=== PATIENT | female | born 1965 | race Caucasian/White ===

== ENCOUNTER 2016-07-02 22:26 | Emergency (ER) | payer MEDICARE, OTHER ==
[~2016-07-02] VITALS: Ht 170.2 cm; Wt 68.0 kg
[~2016-07-02 22:26] MED LIST: CLON1TAB4 PO; DISU250T7 PO; DULO20CA PO; FLUV50TA10 PO; GABA800T PO; LEVO25TA9 PO; LINA145C PO; LORA1TAB82 PO; PROC10TA PO; TRAZ-147 PO
[2016-07-02 22:40] VITALS: BP 124/83
== END 2016-07-02 23:24 | disposition home or self-care (01) ==
LOC: ER 22:27
DX: F10.129 Alcohol abuse with intoxication, unspecified (principal); E03.9 Hypothyroidism, unspecified; F32.9 Major depressive disorder, single episode, unspecified; F42.9 Obsessive-compulsive disorder, unspecified; F17.200 Nicotine dependence, unspecified, uncomplicated; R79.89 Other specified abnormal findings of blood chemistry
CPT/HCPCS: 82962; 99283; A4606; Z7610

== ENCOUNTER 2016-08-12 23:12 | Emergency (ER) | payer MEDICARE, OTHER ==
[~2016-08-12] VITALS: Ht 175.3 cm; Wt 68.0 kg
[2016-08-12 23:35] VITALS: BP 140/87
[2016-08-13] MEDS ORDERED: LORAZEPAM INJ 2 MG/ML VIAL ONE (00:24)
[2016-08-13] MEDS ORDERED: LORAZEPAM INJ 2 MG/ML VIAL IM ONE (00:30)
== END 2016-08-13 01:04 | disposition left against medical advice (07) ==
LOC: ER 23:16
DX: F10.10 Alcohol abuse, uncomplicated (principal); G40.909 Epilepsy, unspecified, not intractable, without status epilepticus; F32.9 Major depressive disorder, single episode, unspecified; E03.9 Hypothyroidism, unspecified; F42.8 Other obsessive-compulsive disorder; F17.200 Nicotine dependence, unspecified, uncomplicated
CPT/HCPCS: 82962; 96372; 99283; A4606; J2060; Z7610

== ENCOUNTER 2016-08-27 22:54 | Emergency (ER) | payer MEDICARE, OTHER ==
[~2016-08-27] VITALS: Ht 175.3 cm; Wt 65.3 kg
[2016-08-27 23:15] VITALS: BP 153/93
--- NOTE | 2016-08-27 23:15 | NUR ---
TRIAGED AND PLACED LOBBY. AMBULATORY FRO RA SHAWNRCESARIO WITH STEADY GAIT WITHOUT ANY S/S OF ATAXIA/WEAKNESS OR C/O DIZZINESS. NO S/S OF DISTRESS NOTED. RESP EVEN AND UNLABORED. AWAITS ROOM ASSIGNMENT. MD AWARE.
--- NOTE | 2016-08-28 00:05 | NUR ---
CALLED FOR ROOM ASSIGNMENT FROM LOBBY; NO ANSWER.
--- NOTE | 2016-08-28 01:16 | NUR ---
CALLED AGIN FOR ROOM ASSIGNMENT; NOT IN LOBBY.
--- NOTE | 2016-08-28 02:58 | NUR ---
CALLED AGAIN FROM LOBBY; NO ANSWER.
--- NOTE | 2016-08-28 04:59 | NUR ---
CALLED ONE MORE TIME FOR EITHER LOBBY; NO WHERE TO BE FOUND. MD NOTIFIED OF ALL ATTEMPTS.
== END 2016-08-28 05:04 | disposition left against medical advice (07) ==
LOC: ER 22:55
DX: Z53.21 Procedure and treatment not carried out due to patient leaving prior to being seen by health care provider (principal)
CPT/HCPCS: A4606; Z7610

== ENCOUNTER 2016-12-13 20:22 | Emergency (ER) | payer MEDICARE, OTHER ==
--- NOTE | 2016-12-13 20:30 | NUR ---
CALLED PT NAME X 3. NO RESPONSE IN WAITING ROOM.
--- NOTE | 2016-12-13 21:10 | NUR ---
CALLED PT NAME X3 NO RESPONSE IN WAITING ROOM.
--- NOTE | 2016-12-13 21:30 | NUR ---
CALLED FOR PT IN WR. NO RESPONSE
== END 2016-12-13 22:07 | disposition left against medical advice (07) ==
LOC: ER 20:23
DX: Z53.21 Procedure and treatment not carried out due to patient leaving prior to being seen by health care provider (principal)

== ENCOUNTER 2016-12-14 22:32 | Emergency (ER) | payer MEDICARE, OTHER ==
--- NOTE | 2016-12-14 22:38 | NUR ---
CALLED PT NAME X3. NO RESPONSE IN WAITING ROOM.
--- NOTE | 2016-12-14 23:07 | NUR ---
CALLED PT NAME X3. NO ONE IN WAITING ROOM.
--- NOTE | 2016-12-14 23:26 | NUR ---
CALLED PT NAME X3. NO ONE IN WAITING ROOM.
== END 2016-12-14 23:28 | disposition left against medical advice (07) ==
LOC: ER 22:33
DX: Z53.21 Procedure and treatment not carried out due to patient leaving prior to being seen by health care provider (principal)

== ENCOUNTER 2016-12-25 00:17 | Emergency (ER) | payer MEDICARE, OTHER ==
[~2016-12-25] VITALS: Ht 175.3 cm; Wt 68.0 kg
[2016-12-25 00:22] VITALS: BP 116/78
--- NOTE | 2016-12-25 01:54 | NUR ---
CALLED FOR ROOM ASSIGNMENT; X4 NO ANSWER.
== END 2016-12-25 01:55 | disposition left against medical advice (07) ==
LOC: ER 00:23
DX: Z53.21 Procedure and treatment not carried out due to patient leaving prior to being seen by health care provider (principal)
CPT/HCPCS: A4606; Z7610

== ENCOUNTER 2016-12-27 01:53 | Emergency (ER) | payer MEDICARE, OTHER ==
[~2016-12-27] VITALS: Ht 175.3 cm; Wt 68.0 kg
--- NOTE | 2016-12-27 01:55 | NUR ---
PT BIB RA WITH A C/O ETOH. PT IS ON THE MONITOR AND CONTINUOUS PULSE OX. PT IS ANSWERING QUESTION CORRECTLY. PT STATED THAT SHE DRANK "[employer]" BEER. PT REC'D WARM BLANKETS AND IS RESTING COMFORTABLY
--- NOTE | 2016-12-27 04:07 | NUR ---
PT APPEARS TO BE SLEEPING SOUNDLY WITH NO S/S OF PAIN OR DISTRESS.
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
[2016-12-27 04:36] VITALS: BP 112/79
== END 2016-12-27 04:36 | disposition home or self-care (01) ==
LOC: ER 01:54
DX: F10.129 Alcohol abuse with intoxication, unspecified (principal); E03.9 Hypothyroidism, unspecified; F32.9 Major depressive disorder, single episode, unspecified; F41.9 Anxiety disorder, unspecified; J44.9 Chronic obstructive pulmonary disease, unspecified; F17.200 Nicotine dependence, unspecified, uncomplicated
CPT/HCPCS: 99283; A4606; Z7610

== ENCOUNTER 2016-12-30 20:30 | Inpatient (IN) | payer MEDICARE, OTHER ==
[~2016-12-30] VITALS: Ht 177.8 cm; Wt 68.9 kg
--- NOTE | 2016-12-30 20:32 | NUR ---
PT MACI FROM HOME. PRESENTS W/ SUPERFICIAL LT FOREARM ABRASION, SELF INFLICTED STATING SHE IS SUICIDAL DUE TO DEPRESSION. 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 PLACED ON SI PRECAUTION. WILL MONITOR CLOSELY. AWAITING MD BRANDON.
--- NOTE | 2016-12-30 20:39 | NUR ---
DR DUKE AT BEDSIDE FOR EVAL.
[2016-12-30 20:51] LABS: BASOPHILS % (AUTO) 0.3 % (0.0-2.0); EOSINOPHILS # (AUTO) 0.1 /CMM (0.0-0.7); EOSINOPHILS % (AUTO) 1.7 % (0.0-6.0); HEMATOCRIT 37 % (33-45); HEMOGLOBIN 11.9 g/dL (11.5-14.8); LYMPHOCYTES # (AUTO) 2.7 /CMM (0.8-4.8); LYMPHOCYTES % (AUTO) 35.1 % (20.0-44.0); MEAN CORPUSCULAR HEMOGLOBIN 25 PG (26.0-33.0); MEAN CORPUSCULAR HGB CONC 32 g/dl (31.0-36.0); MEAN CORPUSCULAR VOLUME 79 fL (82-100); MONOCYTES # (AUTO) 0.7 /CMM (0.1-1.30); MONOCYTES % (AUTO) 9.5 % (2.0-12.0); NEUTROPHILS # (AUTO) 4.3 /CMM (1.8-8.9); NEUTROPHILS % (AUTO) 53.4 % (43.0-81.0); PLATELET COUNT (AUTO) 271 /CMM (150-450); RDW COEFFICIENT OF VARIATION 20.2 (11.5-15.0); RED BLOOD CELL COUNT(AUTO) 4.69 MIL/uL (4.0-5.2); WHITE BLOOD COUNT (AUTO) 7.8 K/uL (4.3-11.0)
[2016-12-30 20:59] LABS: CALCIUM, SERUM 8.5 mg/dL (8.5-10.1); CARBON DIOXIDE 23 mmol/L (21-32); CHLORIDE 104 mmol/L (98-107); CREATININE 0.6 mg/dL (0.6-1.3); GLUCOSE 118 mg/dL (74-106); SODIUM SERUM 138 mmol/L (136-145); UREA NITROGEN, BLOOD 6 mg/dL (7-18)
[2016-12-30 21:04] LABS: ALANINE AMINOTRANSFERASE 20 U/L (12-78); ALBUMIN 3.4 g/dL (3.4-5.0); ALCOHOL, BLOOD 255 mg/dL (0-0); ALKALINE PHOSPHATASE 79 U/L (46-116); ASPARTATE AMINOTRANSFERASE 22 U/L (15-37); BILIRUBIN,DIRECT 0.1 mg/dL (0.0-0.2); BILIRUBIN,TOTAL 0.2 mg/dL (0.2-1.0); SALICYLATE 5.8 mg/dL (2.8-20.0); TOTAL PROTEIN, SERUM 7.6 g/dL (6.4-8.2)
[2016-12-30 21:05] LABS: ACETAMINOPHEN < 10 ug/ml (10-30)
--- NOTE | 2016-12-30 21:17 | NUR ---
catrachita rn at bedside for psych eval.
[2016-12-30] MEDS ORDERED: TDAP [DIPH/PERTUSSIS/TET] 0.5 ML VIAL IM ONE ×2 (21:30)
[2016-12-30] MEDS ORDERED: diphenhydrAMINE HCL 50 MG/ML VIAL IM ONE (21:30)
[2016-12-30] MEDS ORDERED: LORAZEPAM INJ 2 MG/ML VIAL IM ONE (21:30)
[2016-12-30 21:31] LABS: APPEARANCE,URINE Clear (CLEAR); BILIRUBIN,URINE Negative (NEGATIVE); BLOOD, URINE Negative Ery/uL (NEGATIVE); COLOR,URINE Yellow (YELLOW); KETONES,URINE Negative (NEGATIVE); LEUKOCYTE ESTERASE ,URINE Negative (NEGATIVE); NITRITE, URINE Negative (NEGATIVE); PH,URINE 6.5 (5.0-8.0); PROTEIN,URINE Negative (NEGATIVE); UGLUCOSE Negative (NEGATIVE); UROBILINOGEN,URINE 0.2 EU/dL (0.2)
[2016-12-30] MEDS ORDERED: LORAZEPAM INJ 2 MG/ML VIAL ONE (21:49)
--- NOTE | 2016-12-30 22:01 | NUR ---
REPORT GIVEN TO VICENTE. PT AWAITING TRANSFER TO FLOOR.
[2016-12-30 23:00] VITALS: BP 123/80
[2016-12-30] MEDS ORDERED: TEMAZEPAM 7.5 MG CAPSULE PO PRN (23:30)
[2016-12-30] MEDS ORDERED: MAG HYDROX/AL HYDROX/SIMETH 30 ML UDC PO PRN (23:30)
[2016-12-30] MEDS ORDERED: LORAZEPAM 0.5 MG TABLET PO PRN (23:30)
--- NOTE | 2016-12-30 23:54 | NUR ---
GPS RN ADMITTED NOTES ADMITTED THIS 51Y/O FEMALE FROM [facility] ER ,PT INITIALLY CAME FROM HOME , PT. CAME TO THE UNIT VIA WHEELCHAIR ACCOMPANIED ER STAFF PT. IS ON 5150 HOLD GRAVELY DISABLE, PER HOLD SUCIDIAL IDEATION, I AM DEPREESE WANT TO KILL MY SELF AND CUT LEFT WRIST WITH A KNIEF ,UPON FACE TO FACE ASSESSMENT PT. A/O X3 , MENTAL HX OF DEPRESSION, ANXIETY MEDICAL HX OF SEIZURES ,COPD, HYPOTHRIDISM, SKIN ASSESSMENT DONE LEFT WRIST RIGHT ELBOW AND BOTH KNEE ABRATION NOTED ,NO ANY ACTIVE BLEEDING OR ANY DISCHARGE NOTED, PICTURE TAKEN AND PLACED IN THE CHART , NO ACUTE DISTRESS NOTED , DENIES ANY PAIN DISCOMFORT AT THIS TIME , MRSA SCREENING DONE IN ER ,BOTH MD AWARE OF NEW ADMISSION NEW ORDERS RECEIVED AND CARRIED OUT, REORIENT TO UNIT POLICES AND CONTRABAND CHECKS , WILL CONTINUE TO MONITOR FOR SAFETY AND BEHAVIOR .
--- NOTE | 2016-12-31 06:38 | NUR ---
RN GPS NOTE PT .REMAINED IN STABLE CONDITION RESTING IN HER BED ,NO ACUTE DISTRESS NOTED ATTENDED ALL NEEDS AND ANTICIPATED , DENIES SI/ HI AT THIS TIME, ENDORSE TO NEXT SHIFT NURSE. WILL ENDORSE TO NEXT SHIFT FOR CONTINUITY OF CARE
--- NOTE | 2016-12-31 06:54 | NUR ---
RN GPS NOTES ; AT 02:[address] VALLE REGARDING OF NEW ADMISSION FOR MED RECAN STATED I WILL DO IT , BUT MED RECAN IS NOT DONE , ENDORSE NEXT SHIFT TO FOLLOWUP.
[2016-12-31 07:43] LABS: CREATININE 0.7 mg/dL (0.6-1.3)
[2016-12-31 08:00] VITALS: BP 104/67
[2016-12-31] MEDS ORDERED: FLUV100T3 PO ×2 (08:56)
[2016-12-31] MEDS ORDERED: HYDR50CA PO (08:56)
[2016-12-31] MEDS ORDERED: ARIP30TA PO (08:56)
[2016-12-31] MEDS ORDERED: LEVO125T8 PO (08:56)
--- NOTE | 2016-12-31 10:02 | NUR ---
GPS RN NOTE: DR ABERNATHY NOTIFIED TO RECONCILED HOME MEDICATIONS
[2016-12-31 16:26] VITALS: BP 118/81
--- NOTE | 2016-12-31 16:28 | NUR ---
Initial discharge plan :Pt. states she lives in an apartment with her ex-boyfriend (the apartment belongs to the patient) at [address] [address] and wants to return. Pt. states she has an intake interview at [facility] [phone] tomorrow, but since she is in the hospital, social media campaign manager will follow up with the facility to confirm whether pt. can be accepted right after discharge. SW will follow up with pt's ex boyfriend Bridger Dawson [phone] and will help arrange safe and proper discharge.
[2016-12-31] MEDS: GABAPENTIN 300 MG CAPSULE PO SCH (17:20)
--- NOTE | 2016-12-31 18:54 | NUR ---
GPS RN NOTE: DR ABERNATHY NOTIFIED OF PT URINE LAB AND TO RECONCILED HOME MEDICATIONS
[2016-12-31 20:00] VITALS: BP 133/76
[2016-12-31] MEDS: GABAPENTIN 400 MG CAPSULE PO SCH (21:57)
[2016-12-31] MEDS: ARIPIPRAZOLE 5 MG TABLET PO SCH (21:58)
[2016-12-31] MEDS: FLUVOXAMINE MALEATE 50 MG TABLET PO SCH (21:58)
[2017-01-01] MEDS: ACETAMINOPHEN 325 MG TABLET PO PRN ×2 (05:37→23:47)
--- NOTE | 2017-01-01 05:41 | NUR ---
GPS/RN C/O HEADACHE, MEDICATED WITH TYLENOL 650 MG PO WAS GIVEN ORDERED.
--- NOTE | 2017-01-01 06:41 | NUR ---
GPS/RN PATIENT IS SLEEPING AT THIS TIME, AROUSABLE, APPEAR COMFORTABLE, NO SIGNS OF DISTRESS NOTED, ALL NEEDS ATTENDED AT THIS TIME. WILL CONTINUE TO MONITOR.
[2017-01-01 08:00] VITALS: BP 131/79
[2017-01-01 08:02] LABS: IRON, SERUM 44 ug/dl (50-175); TOTAL IRON BINDING CAPACITY 376 ug/dl (250-450)
--- NOTE | 2017-01-01 09:00 | NUR ---
RN NOTES MEDICATIONS MAY BE LATE THE NURSE DOES NOT HAVE ACCESS TO THE PIXIS. CLINICAL NURSE OCCUPATIONAL MEDICINE IS BUSY PREPARING FOR ANOTHER PATIENT COURT HEARING. WILL ADMINISTER SOON ABLE.
[2017-01-01] MEDS: GABAPENTIN 300 MG CAPSULE PO SCH ×3 (09:57→17:17)
[2017-01-01] MEDS: LEVOTHYROXINE SODIUM 125 MCG TABLET PO SCH (09:57)
[2017-01-01] MEDS: THIAMINE HCL 100 MG TABLET PO SCH (09:57)
[2017-01-01 10:00] VITALS: BP 131/79
--- NOTE | 2017-01-01 11:20 | NUR ---
RN NOTES PATIENT ASKS IF SHE CAN HAVE A NICOTINE PATCH; STATES THAT SHE SMOKES ABOUT A PACK A DAY. CALLED [facility] FOR DR ABERNATHY. WAITING FOR RETURN CALL.
--- NOTE | 2017-01-01 11:22 | NUR ---
RN NOTES SPOKE TO DR ABERNATHY. ORDERED NICOTINE PATCH 21G DAILY. WILL PLACE ORDERS.
[2017-01-01] MEDS: NICOTINE PATCH (21MG) 21 MG PATCH.TD24 TD SCH (12:07)
--- NOTE | 2017-01-01 13:45 | NUR ---
WOUND CARE CONSULT PER NURSING STAFF, PATIENT IS AMBULATORY WITH ERIKA AT 21. PATIENT HAS A FEW DRY SCABS, BUT NO OPEN WOUNDS. PATIENT IS CONTINENT. WILL SEE PRN.
[2017-01-01] MEDS: FERROUS SULFATE (325 MG) 325 MG/TAB TABLET PO SCH ×2 (14:52→17:17)
--- NOTE | 2017-01-01 15:19 | NUR ---
SW met with the patient and provided an option to go to a facility after discharge for short term but pt. refuses at this time.
[2017-01-01 16:00] VITALS: BP 122/90
[2017-01-01] MEDS ORDERED: hydrOXYzine PAMOATE 50 MG CAPSULE PO SCH (18:00)
--- NOTE | 2017-01-01 19:06 | NUR ---
GPS/RN NOTE: PATIENT IS SITTING AT THE DINING AREA WITH OTHER PATIENTS, CALM AND PLEASANT. NO ACUTE DISTRESS NOTED.
[2017-01-01 20:00] VITALS: BP 122/86
[2017-01-01] MEDS: ARIPIPRAZOLE 5 MG TABLET PO SCH (21:18)
[2017-01-01] MEDS: GABAPENTIN 400 MG CAPSULE PO SCH (21:19)
[2017-01-01] MEDS: FLUVOXAMINE MALEATE 50 MG TABLET PO SCH (21:19)
--- NOTE | 2017-01-01 23:48 | NUR ---
GPS/RN NOTE: PATIENT AWAKE, C/O HEADACHE, TYLENOL 650 MG TAB PO GIVEN.
[2017-01-02 08:00] VITALS: BP 142/92
[2017-01-02] MEDS: NICOTINE PATCH (21MG) 21 MG PATCH.TD24 TD SCH (08:50)
[2017-01-02] MEDS: LEVOTHYROXINE SODIUM 125 MCG TABLET PO SCH (08:50)
[2017-01-02] MEDS: GABAPENTIN 300 MG CAPSULE PO SCH ×3 (08:50→16:23)
[2017-01-02] MEDS: FERROUS SULFATE (325 MG) 325 MG/TAB TABLET PO SCH ×2 (08:50→16:23)
[2017-01-02] MEDS: THIAMINE HCL 100 MG TABLET PO SCH (08:50)
[2017-01-02 16:18] VITALS: BP 124/86
--- NOTE | 2017-01-02 19:04 | NUR ---
GPS/RN NOTE: PATIENT IS RESTING IN BED, SHOWS NO S/S OF ANY DISTRESS.
[2017-01-02 20:00] VITALS: BP 133/91
[2017-01-02] MEDS: ARIPIPRAZOLE 5 MG TABLET PO SCH (21:56)
[2017-01-02] MEDS: FLUVOXAMINE MALEATE 50 MG TABLET PO SCH (21:57)
[2017-01-02] MEDS: GABAPENTIN 400 MG CAPSULE PO SCH (21:59)
[2017-01-02] MEDS: TEMAZEPAM 7.5 MG CAPSULE PO PRN (22:48)
--- NOTE | 2017-01-02 22:49 | NUR ---
GPS/RN NOTE: PATIENT C/O INSOMNIA, TEMAZEPAM 30 MG CAP PO GIVEN.
--- NOTE | 2017-01-03 07:30 | NUR ---
RECEIVED PT. ALERT AND ORIENTED X3.NO COMPLAINTS OFFERED.
[2017-01-03 08:00] VITALS: BP 116/74
[2017-01-03] MEDS: THIAMINE HCL 100 MG TABLET PO SCH (09:43)
[2017-01-03] MEDS: NICOTINE PATCH (21MG) 21 MG PATCH.TD24 TD SCH (09:44)
[2017-01-03] MEDS: LEVOTHYROXINE SODIUM 125 MCG TABLET PO SCH (09:44)
[2017-01-03] MEDS: FERROUS SULFATE (325 MG) 325 MG/TAB TABLET PO SCH ×2 (09:44→17:48)
[2017-01-03] MEDS: GABAPENTIN 300 MG CAPSULE PO SCH ×3 (09:44→17:48)
--- NOTE | 2017-01-03 11:30 | NUR ---
DR. BRASWELL IN TO SEE PT.
--- NOTE | 2017-01-03 15:26 | NUR ---
MED COMPLIANT,COOPERATIVE.
[2017-01-03 16:00] VITALS: BP 141/88
--- NOTE | 2017-01-03 18:17 | NUR ---
no change in status.
[2017-01-03 20:00] VITALS: BP 113/82
[2017-01-03] MEDS: ARIPIPRAZOLE 5 MG TABLET PO SCH (21:05)
[2017-01-03] MEDS: FLUVOXAMINE MALEATE 50 MG TABLET PO SCH (21:06)
--- NOTE | 2017-01-03 21:27 | NUR ---
RN GPS NOTES AT 2100 PT. REFUSED ALL SCHEDULE MEDS , COGENTIN , DEPAKOTE ,HALODOL , ACCU CHECK , ENCOURAGED FOE MEDS, EXPLAINED RISKS AND BENEFITS PT. STILL REFUSED , Addendum: 01/03/17 at 2146 by RUBI DUTTA RN WRONG PT DOCUMENTATION
[2017-01-03] MEDS: GABAPENTIN 400 MG CAPSULE PO SCH (21:37)
--- NOTE | 2017-01-03 21:49 | NUR ---
RN GPS NOTES AT 2200 ADMINISTRATED GABAPENTIN MD ORDER BUT UNABLE TO SCANED GABAPENTIN , USED BAR CODE,
[2017-01-03] MEDS: MAGNESIUM HYDROXIDE 30 ML UDC PO PRN (22:05)
[2017-01-03] MEDS: TEMAZEPAM 7.5 MG CAPSULE PO PRN (22:05)
[2017-01-04] MEDS: ACETAMINOPHEN 325 MG TABLET PO PRN (05:20)
[2017-01-04 08:00] VITALS: BP 111/75
[2017-01-04] MEDS: FERROUS SULFATE (325 MG) 325 MG/TAB TABLET PO SCH ×2 (08:38→18:06)
[2017-01-04] MEDS: NICOTINE PATCH (21MG) 21 MG PATCH.TD24 TD SCH (08:38)
[2017-01-04] MEDS: GABAPENTIN 300 MG CAPSULE PO SCH ×3 (08:38→18:06)
[2017-01-04] MEDS: LEVOTHYROXINE SODIUM 125 MCG TABLET PO SCH (08:38)
[2017-01-04] MEDS: THIAMINE HCL 100 MG TABLET PO SCH (08:38)
[2017-01-04 16:00] VITALS: BP_SYST 104; BP_DIAS 73; BP_DIAS 74
[2017-01-04] MEDS: MAGNESIUM HYDROXIDE 30 ML UDC PO PRN (18:06)
--- NOTE | 2017-01-04 18:06 | NUR ---
ADMINISTERED MILK OF MAGNESIA 30 MG/ML PO PRN FOR CONSTIPATION, ENCOURAGED TO INCREASE FLUID INTAKE.
[2017-01-04 20:00] VITALS: BP 119/79
[2017-01-04] MEDS: ARIPIPRAZOLE 5 MG TABLET PO SCH (21:50)
[2017-01-04] MEDS: FLUVOXAMINE MALEATE 50 MG TABLET PO SCH (21:51)
[2017-01-04] MEDS: TEMAZEPAM 7.5 MG CAPSULE PO PRN (21:52)
[2017-01-04] MEDS: GABAPENTIN 400 MG CAPSULE PO SCH (21:52)
[2017-01-05] MEDS: ACETAMINOPHEN 325 MG TABLET PO PRN (03:29)
[2017-01-05] MEDS: LEVOTHYROXINE SODIUM 125 MCG TABLET PO SCH (08:03)
[2017-01-05] MEDS: NICOTINE PATCH (21MG) 21 MG PATCH.TD24 TD SCH (08:03)
[2017-01-05] MEDS: FERROUS SULFATE (325 MG) 325 MG/TAB TABLET PO SCH ×2 (08:03→16:54)
[2017-01-05] MEDS: GABAPENTIN 300 MG CAPSULE PO SCH ×3 (08:03→16:54)
[2017-01-05] MEDS: THIAMINE HCL 100 MG TABLET PO SCH (08:03)
[2017-01-05 08:06] VITALS: BP 112/76
[2017-01-05 15:53] VITALS: BP 102/68
--- NOTE | 2017-01-05 16:26 | NUR ---
SW left a voicemail for Rhianna from [facility] [phone] to confirm pt's appointment for an intake. Pt. stated stated she wants to go home first before she makes those arrangements.
--- NOTE | 2017-01-05 16:27 | NUR ---
Pt's sister is Emerald and her phone number is [phone] Addendum: 01/05/17 at 1649 by VICENTA SCHMIDT [phone]
[2017-01-05 19:37] VITALS: BP 111/79
[2017-01-05] MEDS ORDERED: FLUVOXAMINE MALEATE 50 MG TABLET PO SCH (22:00)
[2017-01-05] MEDS: ARIPIPRAZOLE 5 MG TABLET PO SCH (22:04)
[2017-01-05] MEDS: MAGNESIUM HYDROXIDE 30 ML UDC PO PRN (22:04)
[2017-01-05] MEDS: GABAPENTIN 400 MG CAPSULE PO SCH (22:04)
[2017-01-05] MEDS: TEMAZEPAM 7.5 MG CAPSULE PO PRN (22:04)
[2017-01-06 08:00] VITALS: BP 97/68
[2017-01-06] MEDS: THIAMINE HCL 100 MG TABLET PO SCH (08:20)
[2017-01-06] MEDS: LEVOTHYROXINE SODIUM 125 MCG TABLET PO SCH (08:20)
[2017-01-06] MEDS: FERROUS SULFATE (325 MG) 325 MG/TAB TABLET PO SCH (08:20)
[2017-01-06] MEDS: GABAPENTIN 300 MG CAPSULE PO SCH (08:20)
[2017-01-06] MEDS: NICOTINE PATCH (21MG) 21 MG PATCH.TD24 TD SCH (08:21)
--- NOTE | 2017-01-06 14:18 | NUR ---
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
--- NOTE | 2017-01-06 14:57 | NUR ---
Discharge note: Pt. was discharged back home via taxi to [address] [place], [place] [address] . Pts sister, Rose [phone] is notified via voicemail. Ex boyfriend, Bridger Dawson [phone] has also been notified. Pt. agreed with discharge plan, was calm and cooperative, denied suicidal/homicidal ideations. Pt. will follow up with her psychiatrist, Dr. Bhupinder Enrique [address] [place] [address], [place] [address] [phone] on January 13, 11:30AM to discuss alcohol dependence. Pt. is also going to follow up with [facility] [phone] for an intake on January 16 at 10:00AM. Pt. is a smoker; hence, was referred to [facility] at [address], [address] [facility] on at 7:00 PM [phone]. Pt. was provided information and verbalized understanding and agreed to attend. Discharge paperwork has been signed and discharge instructions was provided to the patient.
== END 2017-01-06 14:15 | disposition home or self-care (01) | DRG 885 ==
LOC: ER 20:31 → GPS 22:11
PROVIDERS: ADMIT Psychiatry & Neurology Psychiatry; ATTEND Nurse Practitioner Acute Care
DX: F33.2 Major depressive disorder, recurrent severe without psychotic features (principal); F10.229 Alcohol dependence with intoxication, unspecified; E03.9 Hypothyroidism, unspecified; E78.5 Hyperlipidemia, unspecified; F17.200 Nicotine dependence, unspecified, uncomplicated; F29 Unspecified psychosis not due to a substance or known physiological condition; F41.9 Anxiety disorder, unspecified; Y90.8 Blood alcohol level of 240 mg/100 ml or more; F12.10 Cannabis abuse, uncomplicated; Z73.6 Limitation of activities due to disability; S60.812A Abrasion of left wrist, initial encounter; X78.1XXA Intentional self-harm by knife, initial encounter; Y93.9 Activity, unspecified; Y92.009 Unspecified place in unspecified non-institutional (private) residence as the place of occurrence of the external cause; Z79.899 Other long term (current) drug therapy
CPT/HCPCS: 36415; 80048-TC; 80061-TC; 80076-TC; 80305; 81000-TC; 82565-TC; 83540-TC; 85025-TC; 87081-TC; 90715; A4606; G0480; J1200; J2060; Z7610

== ENCOUNTER 2017-03-29 00:21 | Emergency (ER) | payer MEDICARE, OTHER ==
[~2017-03-29] VITALS: Ht 180.3 cm; Wt 72.6 kg
[~2017-03-29 00:21] MED LIST changes: +ARIP30TA PO; -CLON1TAB4 PO; -DULO20CA PO; -FLUV50TA10 PO; +HYDR50CA PO; +LEVO125T8 PO; -LEVO25TA9 PO; -LORA1TAB82 PO; -PROC10TA PO; -TRAZ-147 PO
--- NOTE | 2017-03-29 00:24 | NUR ---
52 yo female bb ra for etoh intoxication. pt is alert x 3 denies any trauma, admits to alcohol drinking, smells of alcohol. patient is moving all extremities freely. pt was DS to er bed 12 by EMS. pt skin warm and dry, resp even and unlabored. pt placed on active directory engineer. awaiting orders from provider.
--- NOTE | 2017-03-29 00:27 | NUR ---
MD Bernabe at bed side for eval
--- NOTE | 2017-03-29 01:04 | NUR ---
Patient discharged to home in stable condition. Written and verbal after care instructions given. Patient verbalizes understanding of instruction. Pt ambulatory with a steady gait, accompanied by boyfriend. Pt instructed not to drive.
[2017-03-29 01:07] VITALS: BP 133/88
== END 2017-03-29 01:08 | disposition home or self-care (01) ==
LOC: ER 00:25
DX: F10.129 Alcohol abuse with intoxication, unspecified (principal); E03.9 Hypothyroidism, unspecified; F32.9 Major depressive disorder, single episode, unspecified; F41.9 Anxiety disorder, unspecified; R79.89 Other specified abnormal findings of blood chemistry; F17.200 Nicotine dependence, unspecified, uncomplicated
CPT/HCPCS: 82962; 99283; A4606; Z7610

== ENCOUNTER 2017-04-15 20:25 | Emergency (ER) | payer MEDICARE, OTHER ==
[~2017-04-15] VITALS: Ht 177.8 cm; Wt 77.1 kg
--- NOTE | 2017-04-15 20:25 | NUR ---
PT TO ER BB RA FROM HOME FOR ETOH. HEAVY SMELL OF ETOH ON BREATH. NO IMMEDIATE SIGNS OF DISTRESS NOTED. PT VITAL SIGNS STABLE. PT TO ER BED, CHANGED INTO GOWN AND CONNECTED TO MONITOR.
[2017-04-15 22:15] LABS: BASOPHILS % (AUTO) 0.2 % (0.0-2.0); EOSINOPHILS # (AUTO) 0.1 /CMM (0.0-0.7); HEMATOCRIT 38 % (33-45); HEMOGLOBIN 12.9 g/dL (11.5-14.8); LYMPHOCYTES # (AUTO) 2.9 /CMM (0.8-4.8); LYMPHOCYTES % (AUTO) 36.3 % (20.0-44.0); MEAN CORPUSCULAR HEMOGLOBIN 27 PG (26.0-33.0); MEAN CORPUSCULAR HGB CONC 34 g/dl (31.0-36.0); MEAN CORPUSCULAR VOLUME 80 fL (82-100); MONOCYTES # (AUTO) 0.5 /CMM (0.1-1.30); MONOCYTES % (AUTO) 6.4 % (2.0-12.0); NEUTROPHILS # (AUTO) 4.5 /CMM (1.8-8.9); NEUTROPHILS % (AUTO) 56.1 % (43.0-81.0); PLATELET COUNT (AUTO) 231 /CMM (150-450); RED BLOOD CELL COUNT(AUTO) 4.72 MIL/uL (4.0-5.2)
[2017-04-15 22:26] LABS: CALCIUM, SERUM 8.2 mg/dL (8.5-10.1); CREATININE 0.7 mg/dL (0.6-1.3); POTASSIUM 3.9 mmol/L (3.5-5.1)
[2017-04-15 22:32] LABS: ALBUMIN 2.9 g/dL (3.4-5.0); BILIRUBIN,TOTAL 0.2 mg/dL (0.2-1.0); TOTAL PROTEIN, SERUM 6.8 g/dL (6.4-8.2)
--- NOTE | 2017-04-16 00:05 | NUR ---
PT SLEEPING IN GURNEY. PT EASILY AROUSABLE. NO IMMEDIATE SIGNS OF DISTRESS NOTED. PT VITAL SIGNS STABLE. WILL CONT TO MONITOR PT.
--- NOTE | 2017-04-16 06:00 | NUR ---
PT OK TO DISCHARGE PER JESSICA. Patient discharged to home in stable condition. Written and verbal after care instructions given. Patient verbalizes understanding of instruction.Patient is awake and alert to self, day, and place. Pt denies SI/HI. PT ambulatory with a steady gait
[2017-04-16 06:19] VITALS: BP 124/85
== END 2017-04-16 06:19 | disposition home or self-care (01) ==
LOC: ER 20:27
DX: F10.129 Alcohol abuse with intoxication, unspecified (principal); R45.851 Suicidal ideations; F32.9 Major depressive disorder, single episode, unspecified; F41.9 Anxiety disorder, unspecified; G40.909 Epilepsy, unspecified, not intractable, without status epilepticus; E03.9 Hypothyroidism, unspecified; F17.200 Nicotine dependence, unspecified, uncomplicated
CPT/HCPCS: 36415; 80048; 80076; 85025; 93005; 99285; A4606; G0480; Z7610

== ENCOUNTER 2017-04-24 04:10 | Emergency (ER) | payer MEDICARE, OTHER ==
[~2017-04-24] VITALS: Ht 180.3 cm; Wt 81.6 kg
[2017-04-24 04:12] VITALS: BP 130/73
== END 2017-04-24 05:56 | disposition home or self-care (01) ==
LOC: ER 04:12
DX: S20.212A Contusion of left front wall of thorax, initial encounter (principal); F17.200 Nicotine dependence, unspecified, uncomplicated; E03.9 Hypothyroidism, unspecified; F41.9 Anxiety disorder, unspecified; F10.10 Alcohol abuse, uncomplicated; F32.9 Major depressive disorder, single episode, unspecified; W01.198A Fall on same level from slipping, tripping and stumbling with subsequent striking against other object, initial encounter; Y93.89 Activity, other specified; Y92.89 Other specified places as the place of occurrence of the external cause; Y99.8 Other external cause status
CPT/HCPCS: 71100; 99284; A4606; Z7610

== ENCOUNTER 2017-05-07 05:03 | Emergency (ER) | payer MEDICARE, OTHER ==
[~2017-05-07] VITALS: Ht 180.3 cm; Wt 81.6 kg
[2017-05-07 05:05] VITALS: BP 138/76
[2017-05-07] MEDS ORDERED: ONDANSETRON HCL/PF 4 MG/2 ML VIAL IM ONE (05:30)
[2017-05-07] MEDS ORDERED: ONDANSETRON HCL/PF 4 MG/2 ML VIAL ONE (05:31)
== END 2017-05-07 06:18 | disposition home or self-care (01) ==
LOC: ER 05:07
DX: F10.10 Alcohol abuse, uncomplicated (principal); R11.2 Nausea with vomiting, unspecified; G40.909 Epilepsy, unspecified, not intractable, without status epilepticus; F32.9 Major depressive disorder, single episode, unspecified; F41.9 Anxiety disorder, unspecified; E03.9 Hypothyroidism, unspecified; F17.200 Nicotine dependence, unspecified, uncomplicated
CPT/HCPCS: 96372; 99283; A4606; J2405; Z7610

== ENCOUNTER 2017-10-11 23:30 | Emergency (ER) | payer MEDICARE, OTHER ==
[~2017-10-11] VITALS: Ht 180.3 cm; Wt 88.5 kg
[~2017-10-11 23:30] MED LIST changes: -ARIP30TA PO; +ARIP30TA3 PO
--- NOTE | 2017-10-11 23:50 | NUR ---
MACI 878 FROM HOME FOR ETOH. +SI - HI, PLANS TO OVERDOSE ON PILLS AND CUT WRIST. PT AOX3 RR EVEN AND UNLABORED. NO SOB NOTED. NAD NOTED. NO NVD AT THIS TIME. PT PLACED ON MONITOR WAITING FOR MD BRANDON.
--- NOTE | 2017-10-11 23:53 | NUR ---
LAB AT BEDSIDE FOR BLOOD DRAW
--- NOTE | 2017-10-11 23:53 | NUR ---
Aixa ohara in [facility] - 10/12/17 at 0012 by KRISHNA LAB AT BEDSIDE FOR ALEKSANDR.
[2017-10-12 00:06] LABS: BASOPHILS % (AUTO) 0.4 % (0.0-2.0); EOSINOPHILS % (AUTO) 1.1 % (0.0-6.0); HEMATOCRIT 37 % (33-45); HEMOGLOBIN 12.4 g/dL (11.5-14.8); LYMPHOCYTES % (AUTO) 51.2 % (20.0-44.0); MEAN CORPUSCULAR HGB CONC 34 g/dl (31.0-36.0); MEAN CORPUSCULAR VOLUME 82 fL (82-100); MONOCYTES # (AUTO) 0.6 /CMM (0.1-1.30); MONOCYTES % (AUTO) 9.9 % (2.0-12.0); NEUTROPHILS # (AUTO) 2.2 /CMM (1.8-8.9); NEUTROPHILS % (AUTO) 37.4 % (43.0-81.0); PLATELET COUNT (AUTO) 281 /CMM (150-450); RDW COEFFICIENT OF VARIATION 18.4 (11.5-15.0); RED BLOOD CELL COUNT(AUTO) 4.48 MIL/uL (4.0-5.2); WHITE BLOOD COUNT (AUTO) 5.9 K/uL (4.3-11.0)
[2017-10-12 00:25] LABS: CALCIUM, SERUM 8.3 mg/dL (8.5-10.1); CREATININE 0.4 mg/dL (0.6-1.3); POTASSIUM 4.3 mmol/L (3.5-5.1)
[2017-10-12 00:28] LABS: ALBUMIN 3.3 g/dL (3.4-5.0); BILIRUBIN,TOTAL 0.1 mg/dL (0.2-1.0); SALICYLATE 2.6 mg/dL (2.8-20.0); TOTAL PROTEIN, SERUM 7.2 g/dL (6.4-8.2)
--- NOTE | 2017-10-12 00:56 | NUR ---
URINE SPECIMEN OBTAINED AND SENT TO THE LAB.
[2017-10-12 00:59] LABS: APPEARANCE,URINE SL CLOUDY (CLEAR); BILIRUBIN,URINE NEGATIVE (NEGATIVE); BLOOD, URINE 3+ Ery/uL (NEGATIVE); COLOR,URINE YELLOW (YELLOW); KETONES,URINE NEGATIVE (NEGATIVE); LEUKOCYTE ESTERASE ,URINE TRACE (NEGATIVE); NITRITE, URINE NEGATIVE (NEGATIVE); PH,URINE 6.5 (5.0-8.0); PROTEIN,URINE NEGATIVE (NEGATIVE); UGLUCOSE NEGATIVE (NEGATIVE); UROBILINOGEN,URINE 0.2 EU/dL (0.2)
[2017-10-12 01:07] LABS: BACTERIA,URINE None seen /HPF (None Seen)
[2017-10-12 01:08] LABS: SQUAMOUS EPITHELIAL CELL,UR Moderate /HPF (None Seen)
--- NOTE | 2017-10-12 02:00 | NUR ---
MD AT BEDSIDE SPEAKING WITH PATIENT.
--- NOTE | 2017-10-12 02:19 | NUR ---
PT RESTING QUIETLY, AROUSES EASILY TO VOICE. VSS. RN TO CONTINUE TO MONITOR PROVIDING SAFETY/COMFORT MEASURES.
--- NOTE | 2017-10-12 02:25 | NUR ---
Patient is awake and alert to self, day, and place. Patient ambulatory with a steady gait.
--- NOTE | 2017-10-12 02:31 | NUR ---
PT DENIES SI/HI, SHE STATES SHE WAS JUST DRUNK AND WANTED A PLACE TO SLEEP.
--- NOTE | 2017-10-12 02:32 | NUR ---
Patient discharged to home in stable condition. Written and verbal after care instructions given. Patient verbalizes understanding of instruction.
[2017-10-12 02:34] VITALS: BP 108/64
== END 2017-10-12 02:35 | disposition home or self-care (01) ==
LOC: ER 23:31
DX: F10.10 Alcohol abuse, uncomplicated (principal); E03.9 Hypothyroidism, unspecified; F32.9 Major depressive disorder, single episode, unspecified; R45.851 Suicidal ideations
CPT/HCPCS: 36415; 80048-TC; 80076-TC; 80305; 81000-TC; 85025-TC; A4606; G0480; Z7610

== ENCOUNTER 2017-10-27 22:08 | Emergency (ER) | payer MEDICARE, OTHER ==
[~2017-10-27] VITALS: Ht 177.8 cm; Wt 77.1 kg
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
--- NOTE | 2017-10-27 22:55 | NUR ---
LAB AT BEDSIDE FOR BLOOD DRAW
[2017-10-27] MEDS ORDERED: TDAP [DIPH/PERTUSSIS/TET] 0.5 ML VIAL IM ONE (23:00)
[2017-10-27 23:07] LABS: BASOPHILS % (AUTO) 0.5 % (0.0-2.0); EOSINOPHILS % (AUTO) 0.7 % (0.0-6.0); HEMATOCRIT 37 % (33-45); HEMOGLOBIN 12.6 g/dL (11.5-14.8); LYMPHOCYTES # (AUTO) 2.8 /CMM (0.8-4.8); LYMPHOCYTES % (AUTO) 36.6 % (20.0-44.0); MEAN CORPUSCULAR HGB CONC 34 g/dl (31.0-36.0); MEAN CORPUSCULAR VOLUME 84 fL (82-100); MONOCYTES # (AUTO) 0.6 /CMM (0.1-1.30); MONOCYTES % (AUTO) 7.7 % (2.0-12.0); NEUTROPHILS # (AUTO) 4.1 /CMM (1.8-8.9); NEUTROPHILS % (AUTO) 54.5 % (43.0-81.0); PLATELET COUNT (AUTO) 246 /CMM (150-450); RDW COEFFICIENT OF VARIATION 17.3 (11.5-15.0); RED BLOOD CELL COUNT(AUTO) 4.46 MIL/uL (4.0-5.2); WHITE BLOOD COUNT (AUTO) 7.6 K/uL (4.3-11.0)
--- NOTE | 2017-10-27 23:10 | NUR ---
PT TO CT.
[2017-10-27 23:17] LABS: CALCIUM, SERUM 8.5 mg/dL (8.5-10.1); CREATININE 0.7 mg/dL (0.6-1.3); POTASSIUM 3.3 mmol/L (3.5-5.1)
[2017-10-27 23:22] LABS: INR 0.9 (0.87-1.13)
--- NOTE | 2017-10-27 23:22 | NUR ---
BOYFRIEND AT BEDSIDE
--- NOTE | 2017-10-27 23:22 | NUR ---
PT RETURNED FROM CT.
[2017-10-27 23:23] LABS: ALBUMIN 3.4 g/dL (3.4-5.0); BILIRUBIN,DIRECT 0.1 mg/dL (0.0-0.2); BILIRUBIN,TOTAL 0.2 mg/dL (0.2-1.0); TOTAL PROTEIN, SERUM 7.2 g/dL (6.4-8.2)
--- NOTE | 2017-10-27 23:23 | NUR ---
MOHIT DUNCAN AT BEDSIDE FOR EVAL.
[2017-10-27] MEDS ORDERED: LIDOCAINE 1% INJ 50 ML MDV IJ ONE (23:30)
--- NOTE | 2017-10-28 00:10 | NUR ---
MOHIT DUNCAN AT BEDSIDE FOR LAC REPAIR.
[2017-10-28] MEDS ORDERED: POTASSIUM CHLORIDE 20 MEQ TAB.PRT.SR PO ONE (00:30)
[2017-10-28] MEDS ORDERED: TDAP [DIPH/PERTUSSIS/TET] 0.5 ML VIAL IM ONE (01:10)
--- NOTE | 2017-10-28 01:16 | NUR ---
PT REFUSED MEDICATION RISK AND BENEFITS EXPLAINED X3. PT STRONGLY REFUSED.
--- NOTE | 2017-10-28 01:17 | NUR ---
PT NOTED WITH DECENT STEADY GAIT. PT REQUEST TO GO HOME. RISK AND BENEFITS EXPLAINED X3. PT STRONGLY REFUSED AND REQUEST TO GO HOME. PER BOYFRIEND AGREES TO TAKE PT HOME. Patient AND BOYFRIEND given information related to possible complications, up to and including , which could occur as a result of leaving the hospital at this time. Patient verbalizes understanding of risks. PT W/C TO CAR PER PT AND BOYFRIEND REQUEST. DR. FABIAN AND MOHIT DUNCAN AWARE
[2017-10-28 01:20] VITALS: BP 112/62
== END 2017-10-28 01:22 | disposition home or self-care (01) ==
LOC: ER 22:08
DX: S01.511A Laceration without foreign body of lip, initial encounter (principal); S01.01XA Laceration without foreign body of scalp, initial encounter; F10.129 Alcohol abuse with intoxication, unspecified; R55 Syncope and collapse; E87.6 Hypokalemia; F32.9 Major depressive disorder, single episode, unspecified; W18.39XA Other fall on same level, initial encounter; Y93.G3 Activity, cooking and baking; Y92.000 Kitchen of unspecified non-institutional (private) residence as the place of occurrence of the external cause; Y99.8 Other external cause status
CPT/HCPCS: 36415; 70450-TC; 71045-TC; 72125-TC; 80048-TC; 80076-TC; 85025-TC; 85730-TC; 90715; A4606; A6402; A6403; G0480; J3490; L0172; Z7610

== ENCOUNTER 2018-02-19 21:44 | Inpatient (IN) | payer MEDICARE, MEDICAID ==
[~2018-02-19] VITALS: Ht 180.3 cm; Wt 83.0 kg
--- NOTE | 2018-02-19 22:00 | NUR ---
[id number] FROM HOME FOR ETOH PER EMS. PER PT C/O RECTAL BLEED X 5 DAYS. PT INTOXICATED, C/O NAUSEA. AWAITING EVAL BY . NAYELI NOTED @ THIS TIME.
[2018-02-19] MEDS ORDERED: ONDANSETRON HCL/PF 4 MG/2 ML VIAL ONE (22:52)
[2018-02-19] MEDS ORDERED: IV NS 0.9% 1,000 ML BAG IV ONE (23:00)
[2018-02-19] MEDS ORDERED: ONDANSETRON HCL/PF 4 MG/2 ML VIAL IVP ONE (23:00)
[2018-02-19 23:04] LABS: BASOPHILS % (AUTO) 0.3 % (0.0-2.0); EOSINOPHILS % (AUTO) 1.8 % (0.0-6.0); HEMATOCRIT 42 % (33-45); HEMOGLOBIN 13.4 g/dL (11.5-14.8); LYMPHOCYTES # (AUTO) 2.4 /CMM (0.8-4.8); LYMPHOCYTES % (AUTO) 36.7 % (20.0-44.0); MEAN CORPUSCULAR HEMOGLOBIN 29 PG (26.0-33.0); MEAN CORPUSCULAR HGB CONC 32 g/dl (31.0-36.0); MEAN CORPUSCULAR VOLUME 88 fL (82-100); MONOCYTES # (AUTO) 0.5 /CMM (0.1-1.30); NEUTROPHILS # (AUTO) 3.6 /CMM (1.8-8.9); NEUTROPHILS % (AUTO) 54.2 % (43.0-81.0); PLATELET COUNT (AUTO) 276 /CMM (150-450); RDW COEFFICIENT OF VARIATION 16.1 (11.5-15.0); WHITE BLOOD COUNT (AUTO) 6.6 K/uL (4.3-11.0)
[2018-02-19 23:06] LABS: CALCIUM, SERUM 8.9 mg/dL (8.5-10.1); CREATININE 0.7 mg/dL (0.6-1.3); POTASSIUM 3.4 mmol/L (3.5-5.1)
[2018-02-19 23:11] LABS: ALBUMIN 3.5 g/dL (3.4-5.0); BILIRUBIN,DIRECT 0.1 mg/dL (0.0-0.2); BILIRUBIN,TOTAL 0.2 mg/dL (0.2-1.0); TOTAL PROTEIN, SERUM 7.9 g/dL (6.4-8.2)
[2018-02-19 23:21] LABS: INR 0.87 (0.87-1.13)
--- NOTE | 2018-02-19 23:51 | NUR ---
PT ASLEEP, EASILY AWAKEN WITH VERBAL STIMULI. DENIES N/V, SOB, DIZZINESS, CP @ THIS TIME. WILL CONT TO MONITOR.
[2018-02-20] VITALS (8 sets, daily range): BP systolic 123–154; BP diastolic 79–99
[2018-02-20] MEDS ORDERED: IV NS 0.9% 1,000 ML IV PRN (01:32)
--- NOTE | 2018-02-20 01:41 | NUR ---
REPORT GIVEN TO REINIER/ISELA.
[2018-02-20] MEDS ORDERED: Z GUARD REMEDY 2 OZ OINT TP PRN (02:00)
[2018-02-20] MEDS ORDERED: ACETAMINOPHEN 325 MG TABLET PO PRN (02:00)
[2018-02-20] MEDS ORDERED: HYDROCODONE/APAP 5/325MG 1 EACH TABLET PO PRN (02:00)
[2018-02-20] MEDS ORDERED: HYDROCODONE/APAP 10/325MG 1 EA TABLET PO PRN (02:00)
[2018-02-20] MEDS ORDERED: MAG HYDROX/AL HYDROX/SIMETH 30 ML UDC PO PRN (02:00)
[2018-02-20] MEDS ORDERED: ONDANSETRON HCL/PF 4 MG/2 ML VIAL IVP PRN (02:00)
[2018-02-20] MEDS ORDERED: MAGNESIUM HYDROXIDE 30 ML UDC PO PRN (02:00)
[2018-02-20] MEDS ORDERED: LORAZEPAM INJ 2 MG/ML VIAL IV PRN (02:30)
[2018-02-20] MEDS ORDERED: Folic acid 1 MG in IV D5W 50 ML IV SCH (02:30)
--- NOTE | 2018-02-20 02:30 | NUR ---
ADMISSION NOTES PT RECIEVED IN BED AT LOWEST AND LOCKED POSITION WITH SIDE RAILS UP X2, A/O X3, NO S/S OF PAIN NOTED, PT IS DISTRESSED AND CONCERNED ABOUT NAUSEA, GIVEN ZOFRAN, BREATHING EVEN AND UNLABORED, RIGHT AC 20G IS PATENT AND INTACT, SAFETY PRECAUTIONS IN PLACE, WILL CONTINUE TO MONITOR AND ASSESS
[2018-02-20 02:46] LABS: IRON, SERUM 43 ug/dl (50-175); TOTAL IRON BINDING CAPACITY 304 ug/dl (250-450)
[2018-02-20 02:57] LABS: APPEARANCE,URINE CLEAR (CLEAR); BILIRUBIN,URINE NEGATIVE (NEGATIVE); BLOOD, URINE 2+ Ery/uL (NEGATIVE); COLOR,URINE YELLOW (YELLOW); KETONES,URINE NEGATIVE (NEGATIVE); LEUKOCYTE ESTERASE ,URINE NEGATIVE (NEGATIVE); NITRITE, URINE NEGATIVE (NEGATIVE); PH,URINE 6.5 (5.0-8.0); PROTEIN,URINE NEGATIVE (NEGATIVE); UGLUCOSE NEGATIVE (NEGATIVE); UROBILINOGEN,URINE 0.2 EU/dL (0.2)
[2018-02-20] MEDS ORDERED: MORPHINE SULFATE INJ 2 MG/ML DISP.SYRIN IV PRN (03:00)
[2018-02-20 03:02] LABS: BACTERIA,URINE Many /HPF (None Seen); SQUAMOUS EPITHELIAL CELL,UR Few /HPF (None Seen); WBC,URINE 0-2 /HPF (0-3)
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
--- NOTE | 2018-02-20 03:14 | NUR ---
RN NOTS: THIAMINE IV AND FOLIC ACID IV NOT AVAILABLE IN [facility], FAXED ORDER TO RN VIRIDIANA, STATED SHE WILL CALL WHENEVER SHE GOT THE MEDICATION.
[2018-02-20] MEDS ORDERED: Thiamine 100 MG/ML VIAL ONE (03:36)
[2018-02-20] MEDS ORDERED: Folic acid 1 MG/0.2 ML VIAL ONE (03:36)
--- NOTE | 2018-02-20 04:11 | NUR ---
RN NOTES: MEDICATION BROUGHT BY RN SUP. PT HAS ORDER FOR FOLIC ACID 1MG (0.2ML) IN IV D5W TO RUN AT 100.4ML/HR. AVAILABLE STOCK DOSE ON HAND IS FOLIC ACID 50MG PER 10ML (5MG PER ML). 0.2ML/10MLX1 EQUALS 0.02ML. CONTACTED PHARMACY, TO VERIFY IF THE COMPUTATION IS CORRECT, SPOKED TO PHARMACIST CHILD CARE CENTRE DIRECTOR (AFTER HOURS PHARM), SPOKED TO EVY, STATED SHE WILL CALL BACK AND WILL DOUBLE CHECK THE DOSING FOR FOLIC ACID.
--- NOTE | 2018-02-20 04:17 | NUR ---
RN NOTES: RECEIVED CALL FROM SHEET CUTTING OPERATOR PHARMACIST, PER RECOMMENDATION TO GIVE FOLIC ACID SUBCUTANEOUS INSTEAD OF IV. SHE STATED TO GIVE 1MG (0.2ML) AND DC THE ORDER AND CHANGE IT TO FOLIC ACID 1MG SQ.
[2018-02-20] MEDS: Thiamine 100 MG in IV D5W 50 ML IV SCH (04:33)
[2018-02-20] MEDS ORDERED: Folic acid 1 MG/0.2 ML VIAL SUBCUT SCH (05:00)
--- NOTE | 2018-02-20 05:03 | NUR ---
RN NOTES: SPOKED WITH SPD TECH FOR NEREYDA, SINCE THE STOCK DOSE/AVAILABLE ON HAND FOR FOLIC ACID IS 50MG PER ML, AND THE ORDER TO GIVE IS FOLIC ACID 1MG (0.2ML), 0.2ML/10ML X 1 EQUALS 0.02 ML.
--- NOTE | 2018-02-20 05:13 | NUR ---
RN NOTES: PT C/O BEING NAUSEATED, JUST RECEIVED PRN ZOFRAN 2HRS AGO, SPOKEDTO HOME HEALTH ASSISTANT RECONSIGNMENT CLERK, TO GIVE REGLAN 10MG IV X1 DOSE
[2018-02-20] MEDS ORDERED: METOCLOPRAMIDE HCL 10 MG/2 ML VIAL IV ONE ×2 (05:30→14:30)
--- NOTE | 2018-02-20 06:00 | NUR ---
QUALITY ASSISTANT CLOSING NOTES PT IS IN BED AT LOWEST AND LOCKED POSITION WITH SIDE RAILS UP X2, A/O X3, NO S/S OF PAIN OR DISTRESS NOTED, PT HAS BEEN FEELING NAUSEOUS AND WAS GIVEN PRN ZOFRAN AND 1X REGLAN, RESTING COMFORTABLY IN BED, RFA 20 G IS PATENT AND INTACT WITH NS RUNNING @125ML/HR, SAFETY PRECAUTIONS IN PLACE, ALL NEEDS ATTENDED TO, WILL ENDORSE TO DAY SHIFT FOR SOBIA.
[2018-02-20] MEDS: LEVOTHYROXINE SODIUM 125 MCG TABLET PO SCH (07:30)
--- NOTE | 2018-02-20 08:10 | NUR ---
LEFT MESSAGE WITH DOCTOR TIFFANY'S OFFICE FOR CONSULT.
--- NOTE | 2018-02-20 08:16 | NUR ---
SPOKE WITH DOCTOR DO KEANU, FOR CONSULT DUE TO BRIGHT RED BLOOD PER RECTUM.
[2018-02-20] MEDS: PANTOPRAZOLE 40 MG VIAL IV SCH (09:16)
[2018-02-20] MEDS: CHLORDIAZEPOXIDE HCL 5 MG CAPSULE PO SCH ×3 (09:16→18:53)
[2018-02-20] MEDS: NICOTINE PATCH (21MG) 21 MG PATCH.TD24 TD SCH (09:16)
[2018-02-20] MEDS: MULTIVIT, IRON, MIN NO. 8, FA 1 TAB PO SCH (09:16)
[2018-02-20 09:48] LABS: CREATININE 0.7 mg/dL (0.6-1.3); POTASSIUM 4.2 mmol/L (3.5-5.1)
[2018-02-20] MEDS: POTASSIUM CL. PREMIX PERIPHER. 50 ML IV SCH ×4 (10:05→12:13)
[2018-02-20 11:01] LABS: BASOPHILS % (AUTO) 0.6 % (0.0-2.0); EOSINOPHILS % (AUTO) 3.2 % (0.0-6.0); HEMATOCRIT 37 % (33-45); HEMOGLOBIN 12.2 g/dL (11.5-14.8); LYMPHOCYTES # (AUTO) 1.7 /CMM (0.8-4.8); LYMPHOCYTES % (AUTO) 36.3 % (20.0-44.0); MEAN CORPUSCULAR HEMOGLOBIN 29 PG (26.0-33.0); MEAN CORPUSCULAR HGB CONC 33 g/dl (31.0-36.0); MEAN CORPUSCULAR VOLUME 88 fL (82-100); MONOCYTES # (AUTO) 0.6 /CMM (0.1-1.30); MONOCYTES % (AUTO) 11.8 % (2.0-12.0); NEUTROPHILS # (AUTO) 2.3 /CMM (1.8-8.9); NEUTROPHILS % (AUTO) 48.1 % (43.0-81.0); PLATELET COUNT (AUTO) 266 /CMM (150-450); RDW COEFFICIENT OF VARIATION 16.1 (11.5-15.0); RED BLOOD CELL COUNT(AUTO) 4.22 MIL/uL (4.0-5.2); WHITE BLOOD COUNT (AUTO) 4.7 K/uL (4.3-11.0)
[2018-02-20] MEDS ORDERED: IOHEXOL-350 100 ML VIAL IV ONE (13:55)
[2018-02-20] MEDS: IV LR 1000 ML 1,000 ML IV SCH ×2 (13:58→21:15)
[2018-02-20] MEDS ORDERED: IV LR 1,000 ML IV SCH (14:00)
[2018-02-20] MEDS ORDERED: diphenhydrAMINE HCL 50 MG/ML VIAL IV ONE (14:30)
--- NOTE | 2018-02-20 14:31 | NUR ---
Contrast consent signed. Call to CT. No answer.
[2018-02-20] MEDS ORDERED: IV NS 0.9% 0 ML IV ONE (14:48)
[2018-02-20] MEDS ORDERED: IOHEXOL-300 100 ML VIAL IV ONE (14:48)
[2018-02-20] MEDS ORDERED: CT SWABBABLE VALVE TRANS SET 1 EA INFUS.SET MC ONE (14:48)
[2018-02-20] MEDS ORDERED: HYDROCORTISONE CR 30 GM TUBE RC SCH (15:00)
--- NOTE | 2018-02-20 16:32 | NUR ---
Patient transfer to room 205A medical surgical floor. Gave report to ISELA Aguilar.
--- NOTE | 2018-02-20 16:33 | NUR ---
RECEIVED PT TRANSFER FROM [address] [place] [address] [id number] -PT IS ALERT AND ORIENTED X4.VERBALLY RESPONSIVE.AMBULATES AD TROY WITH LIMP D/T RT ANKLE FX.WITH ONGOING IVF LR RUNNING AT 125 ML/HR INFUSING WELL TO RFA.PT DENIES PAIN OR DISTRESS.CALL LIGHT PLACED WITHIN REACH.
[2018-02-20] MEDS ORDERED: hydrOXYzine PAMOATE 50 MG CAPSULE PO SCH (18:00)
[2018-02-20] MEDS ORDERED: hydrOXYzine PAMOATE 25 MG CAPSULE PO SCH ×2 (18:25→18:30)
--- NOTE | 2018-02-20 18:32 | NUR ---
PT RESTING IN BED DENYING ANY PAIN OR DISTRESS.AWAITING FOR THE DELIVERY OF PT'S LIBRIUM AND VISTARIL.CALL LIGHT PLACED WITHIN REACH.
--- NOTE | 2018-02-20 19:25 | NUR ---
RN NOTES RECEIVED PT AWAKE, HOB ELEVATED, AWAKE, ALERT AND ORIENTED X4, ON ROOM AIR AND TOLERATED WELL. DENIES PAIN, NAUSEA AND VOMITING AT THIS TIME. IV ACCESS ON RIGHT FOREARM PATENT AND INTACT. PLAN OF CARE DISCUSSED WITH THE PT AND VERBALIZED UNDERSTANDING. SAFETY MEASURES AND FALL PRECAUTION OBSERVED. WILL CONTINUE TO MONITOR PT.
[2018-02-20] MEDS ORDERED: GABAPENTIN 400 MG CAPSULE ONE (21:26)
[2018-02-20] MEDS ORDERED: GABAPENTIN 400 MG CAPSULE PO SCH (22:00)
[2018-02-20] MEDS ORDERED: GABAPENTIN 1600 MG PO SCH (22:00)
[2018-02-20] MEDS ORDERED: ARIPIPRAZOLE 5 MG TABLET PO SCH (22:00)
[2018-02-21] MEDS: Thiamine 100 MG in IV D5W 50 ML IV SCH (02:41)
[2018-02-21] MEDS ORDERED: Folic acid 1 MG in IV D5W 50 ML IV SCH (06:00)
[2018-02-21 06:23] LABS: BASOPHILS % (AUTO) 0.4 % (0.0-2.0); EOSINOPHILS % (AUTO) 2.3 % (0.0-6.0); HEMATOCRIT 39 % (33-45); HEMOGLOBIN 12.5 g/dL (11.5-14.8); LYMPHOCYTES # (AUTO) 1.9 /CMM (0.8-4.8); LYMPHOCYTES % (AUTO) 30.1 % (20.0-44.0); MEAN CORPUSCULAR HEMOGLOBIN 29 PG (26.0-33.0); MEAN CORPUSCULAR HGB CONC 32 g/dl (31.0-36.0); MEAN CORPUSCULAR VOLUME 89 fL (82-100); MONOCYTES # (AUTO) 0.7 /CMM (0.1-1.30); MONOCYTES % (AUTO) 10.5 % (2.0-12.0); NEUTROPHILS # (AUTO) 3.6 /CMM (1.8-8.9); NEUTROPHILS % (AUTO) 56.7 % (43.0-81.0); PLATELET COUNT (AUTO) 274 /CMM (150-450); RDW COEFFICIENT OF VARIATION 16.5 (11.5-15.0); RED BLOOD CELL COUNT(AUTO) 4.34 MIL/uL (4.0-5.2); WHITE BLOOD COUNT (AUTO) 6.4 K/uL (4.3-11.0)
[2018-02-21] MEDS: IV LR 1000 ML 1,000 ML IV SCH (06:27)
[2018-02-21 06:35] LABS: INR 0.93 (0.87-1.13)
[2018-02-21 06:41] LABS: CALCIUM, SERUM 8.3 mg/dL (8.5-10.1); CREATININE 0.7 mg/dL (0.6-1.3); PHOSPHORUS 3.9 mg/dL (2.5-4.9); POTASSIUM 3.4 mmol/L (3.5-5.1)
[2018-02-21 06:51] LABS: THYROID STIMULATING HORMONE 3.273 uIU/mL (0.358-3.74)
--- NOTE | 2018-02-21 07:08 | NUR ---
RN NOTES PT SLEPT WELL OVERNIGHT. VITAL SIGNS STABLE, AFEBRILE. DENIES PAIN, NAUSEA AND VOMITING. ALL NEEDS ATTENDED. NO SIGNIFICANT CHANGE IN CONDITION NOTED. WILL ENDORSE TO MORNING RN FOR CONTINUITY OF CARE.
--- NOTE | 2018-02-21 07:30 | NUR ---
RN MS NOTES PT IN BED, ASLEEP, EASY TO AROUSE, ALERT AND ORIENTED, NO COMPLAINT OF PAIN, ATE BREAKFAST, TOLERATED WELL, CALL LIGHT WITHIN REACH, NEEDS ATTENDED.
[2018-02-21 08:00] VITALS: BP 140/94
[2018-02-21] MEDS: NICOTINE PATCH (21MG) 21 MG PATCH.TD24 TD SCH (08:27)
[2018-02-21] MEDS: MULTIVIT, IRON, MIN NO. 8, FA 1 TAB PO SCH (08:27)
[2018-02-21] MEDS: PANTOPRAZOLE 40 MG VIAL IV SCH (08:27)
[2018-02-21] MEDS: CHLORDIAZEPOXIDE HCL 5 MG CAPSULE PO SCH (08:27)
[2018-02-21] MEDS: LEVOTHYROXINE SODIUM 125 MCG TABLET PO SCH (08:27)
[2018-02-21] MEDS ORDERED: POTASSIUM CHLORIDE 20 MEQ TAB.PRT.SR PO SCH (09:30)
--- NOTE | 2018-02-21 09:31 | NUR ---
RN MS NOTES KDUR NON ADMIN, MED RESCHEDULED.
[2018-02-21] MEDS ORDERED: IV LR 1000 ML 1,000 ML IV PRN (10:00)
[2018-02-21] MEDS ORDERED: POTASSIUM CHLORIDE 20 MEQ TAB.PRT.SR PO ONE (11:00)
--- NOTE | 2018-02-21 11:14 | NUR ---
RN MS NOTES PT IN BED, RESTING, RESPIRATIONS NORMAL AND NOT LABORED, NO SIGN OF PAIN OR DISCOMFORT, SEEN BY DR. TRINIDAD, DISCHARGE ORDER GIVEN, DISCHARGE AND MEDICATION INSTRUCTIONS PROVIDED TO PT, PT TO FOLLOW UP WITH HER PRIMARY CARE PHYSICIAN, APPOINTMENT ARRANGED FOR THURSDAY [facility], VERBALIZED UNDERSTANDING, SMOKING CESSATION EDUCATION PROVIDED, VERBALIZED UNDERSTANDING, BELONGINGS ACCOUNTED FOR, AWAITING DIRECTOR VOICE.
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
== END 2018-02-21 11:45 | disposition home or self-care (01) | DRG 896 ==
LOC: ER 21:45 → TELE 02-20 02:03 → MED 02-20 09:40 → MEDSG2 02-20 16:15
PROVIDERS: ADMIT Registered Nurse; ATTEND Registered Nurse
DX: F10.129 Alcohol abuse with intoxication, unspecified (principal); K85.20 Alcohol induced acute pancreatitis without necrosis or infection; K56.7 Ileus, unspecified; K86.0 Alcohol-induced chronic pancreatitis; K64.9 Unspecified hemorrhoids; E87.6 Hypokalemia; E03.9 Hypothyroidism, unspecified; K58.9 Irritable bowel syndrome, unspecified; F41.9 Anxiety disorder, unspecified; F32.9 Major depressive disorder, single episode, unspecified; K70.30 Alcoholic cirrhosis of liver without ascites; F17.210 Nicotine dependence, cigarettes, uncomplicated; F10.10 Alcohol abuse, uncomplicated; Y90.6 Blood alcohol level of 120-199 mg/100 ml
CPT/HCPCS: 36415; 74178; 80048-TC; 80074; 80076-TC; 81000-TC; 82105; 82378; 83540-TC; 83690-TC; 83735-TC; 84100-TC; 84443-TC; 85025-TC; 85610-TC; 85730-TC; 86850-TC; 87081-TC; 87086-TC; 87186-TC; C9113; G0480; J1200; J2405; J2765; J3411; J3480; J3490; J7030; J7050; J7060; J7120; Q0177; Q9967

== ENCOUNTER 2018-07-16 01:43 | Emergency (ER) | payer MEDICARE, OTHER ==
[~2018-07-16] VITALS: Ht 180.3 cm; Wt 74.8 kg
[2018-07-16 01:55] VITALS: BP 103/67
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
--- NOTE | 2018-07-16 02:03 | NUR ---
PT APPEARS TO BE RESTING COMFORTABLY WITH NO S/S OF PAIN OR DISTRESS. PT WILL CONTINUE TO BE MONITORED.
--- NOTE | 2018-07-16 02:12 | NUR ---
PT IS FORCING HERSELF TO THROW UP BY STICKING HER FINGERS IN HER MOUTH.
--- NOTE | 2018-07-16 04:05 | NUR ---
PT REQUESTED TO BE DISCHARGED. Patient discharged to home in stable condition. Written and verbal after care instructions given. Patient verbalizes understanding of instruction. PT AMBULATORY WITH STEADY GAIT.
== END 2018-07-16 04:07 | disposition home or self-care (01) ==
LOC: ER 01:57
DX: F10.229 Alcohol dependence with intoxication, unspecified (principal); E03.9 Hypothyroidism, unspecified; R56.9 Unspecified convulsions; Y90.9 Presence of alcohol in blood, level not specified
CPT/HCPCS: 82962-TC

== ENCOUNTER 2020-05-07 00:01 | Inpatient (IN) | payer MEDICARE, OTHER ==
[~2020-05-07] VITALS: Ht 180.3 cm; Wt 76.2 kg
--- NOTE | 2020-05-07 00:02 | NUR ---
URINE COLLECTED AND SENT TO LAB
--- NOTE | 2020-05-07 00:11 | NUR ---
PT MACI AND SONY C/O DEPRESSION S/P ETOH & METH USE. PT STATES "I'VE BEEN VERY DEPRESSED LATELY, BUT IT'S AGAINST MY BUDDHIST TO KILL MYSELF". PT AAOX4. CALM AND COOPERATIVE. VITAL SIGNS STABLE. RESPIRATIONS EVEN AND UNLABORED. SKIN INTACT. NO ACUTE DISTRESS NOTED AT THIS TIME. PT PLACED IN GOWN, BELONGINGS COLLECTED AND LOCKED IN PATEINT LOCKER. WILL CONTINUE TO MONITOR.
--- NOTE | 2020-05-07 00:25 | NUR ---
WOOD DIE MAKER AT BEDSIDE FOR BLOOD DRAW.
[2020-05-07 00:37] LABS: BILIRUBIN,URINE NEGATIVE (NEGATIVE); BLOOD, URINE TRACE-INTA Ery/uL (NEGATIVE); COLOR,URINE YELLOW (YELLOW); LEUKOCYTE ESTERASE ,URINE SMALL (NEGATIVE); NITRITE, URINE NEGATIVE (NEGATIVE); PROTEIN,URINE NEGATIVE (NEGATIVE); UGLUCOSE NEGATIVE (NEGATIVE); UROBILINOGEN,URINE 0.2 EU/dL (0.2)
[2020-05-07 00:39] LABS: BASOPHILS # (AUTO) 0.2 /CMM (0.0-0.2); BASOPHILS % (AUTO) 3.1 % (0.0-2.0); EOSINOPHILS % (AUTO) 0.4 % (0.0-6.0); HEMATOCRIT 44 % (33-45); HEMOGLOBIN 14.5 g/dL (11.5-14.8); LYMPHOCYTES # (AUTO) 1.4 /CMM (0.8-4.8); LYMPHOCYTES % (AUTO) 26.5 % (20.0-44.0); MEAN CORPUSCULAR HGB CONC 33 g/dl (31.0-36.0); MEAN CORPUSCULAR VOLUME 87 fL (82-100); MONOCYTES # (AUTO) 0.3 /CMM (0.1-1.30); MONOCYTES % (AUTO) 4.8 % (2.0-12.0); NEUTROPHILS # (AUTO) 3.5 /CMM (1.8-8.9); NEUTROPHILS % (AUTO) 65.2 % (43.0-81.0); PLATELET COUNT (AUTO) 237 /CMM (150-450); RED BLOOD CELL COUNT(AUTO) 5.02 MIL/uL (4.0-5.2); WHITE BLOOD COUNT (AUTO) 5.4 K/uL (4.3-11.0)
[2020-05-07 00:51] LABS: BACTERIA,URINE None seen /HPF (None Seen); RBC,URINE 0-2 /HPF (0-2); SQUAMOUS EPITHELIAL CELL,UR Few /HPF (None Seen)
[2020-05-07 00:51] LABS: CALCIUM, SERUM 8.9 mg/dL (8.5-10.1); CREATININE 0.9 mg/dL (0.6-1.3); POTASSIUM 4.3 mmol/L (3.5-5.1)
[2020-05-07 00:56] LABS: BILIRUBIN,DIRECT 0.1 mg/dL (0.0-0.2); BILIRUBIN,TOTAL 0.2 mg/dL (0.2-1.0); TOTAL PROTEIN, SERUM 8.5 g/dL (6.4-8.2)
--- NOTE | 2020-05-07 01:31 | NUR ---
CALLL FROM LAB. RAPID COVID NEGATIVE.
[2020-05-07] MEDS ORDERED: DULO20CA PO (01:59)
[2020-05-07] MEDS ORDERED: FLUV50TA10 PO (01:59)
[2020-05-07] MEDS ORDERED: GABA600T12 PO (01:59)
--- NOTE | 2020-05-07 02:00 | NUR ---
report given to Gema on geropsych unit and med recon done per pt's endorsement
--- NOTE | 2020-05-07 02:23 | NUR ---
PT TRANSFERRED TO GPS VIA WHEELCHAIR
[2020-05-07] MEDS ORDERED: TEMAZEPAM 7.5 MG CAPSULE PO PRN (03:00)
[2020-05-07] MEDS ORDERED: amlodipine PO (03:00)
[2020-05-07] MEDS ORDERED: BLOOD SUGAR DIAGNOSTIC 1 EACH STRIP IN ONE (03:00)
[2020-05-07] MEDS ORDERED: MAG HYDROX/AL HYDROX/SIMETH 30 ML UDC PO PRN (03:00)
[2020-05-07 03:14] VITALS: BP 133/95
--- NOTE | 2020-05-07 04:08 | NUR ---
GPS RN NOTES: ADMISSION ADMITTED 55 Y/O FEMALE. PT ADMITTED FROM ER UNIT TO [facility] GPS UNIT ON A 5150 DTS. PER HOLD, OFFICERS RESPONDED TO RADIO CALL OF " AMBULANCE OVERDOSE" AT [facility] [employer] [facility]. PT STATED SHE IS DEPRESSED AND DOES NOT WANT TO BE ALIVE, AND THEREFORE A DANGER TO HERSELF. PT STATED SHE CURRENTLY LIVES AT A [facility] HOME. UPON FACE TO FACE ASSESSMENT PT IS A/O X3-4, FLAT AFFECT, RESERVED, GUARDED, NEEDY, ANXIOUS, AND DEPRESSED. PT CURRENTLY JET SI OR HI. PT STATED SHE IS HERE BECAUSE SHE "RELAPSED". PT HAS HISTORY OF SUBSTANCE ABUSE AND ALCOHOLISM. PT REFUSED TO SIGN CONSENT PAPERS DUE TO FEELING TOO TIRED. ENVIRONMENTAL SAFETY CHECK DONE Q 15 MIN. ENCOURAGE PT TO EXPRESS THOUGHTS AND FEELINGS TO STAFF. ORIENTED PT TO THE UNIT. INFORMED ISAURA HENLEY IN REGARDS TO PTS ADMISSION AND FOR MED RECON. BELONGINGS AND CONTRABAND WERE DONE AND CHECKED. NURSING ASSESSMENT DONE. PICTURE TAKEN OF PT FACE TO IDENTIFICATION WERE DONE AND PLACE IN PTS CHART. SKIN ASSESSMENT DONE. PT SKIN CLEAR AND INTACT. PT RIGHTS DISCUSSED BY TOOL DESIGNER APPRENTICE. PROVIDED PT WITH HANDBOOK AND MED GUIDE. NO S/S OF RESP DISTRESS. BREATHING EVEN AND UNLABORED. NO PAIN AT THIS TIME. BREATHING EVEN AND UNLABORED. NO SOB. INITIAL BLOOD SUGAR CHECKED DONE . PT REQUESTED TO NOT GIVE ANY INFORMATION OUT TO ANY FAMILY OR FRIENDS AND TO INFORM HER THAT SHE WOULD BE THE ONE TO CALL THEM ON HER OWN. PT SIGNED PAPERWORK AND PLACED IN CHART. WILL ENDORSE TO DAY SHIFT WELL TO INFORM THEM. CONTINUE TO MONITOR
[2020-05-07] MEDS: ACETAMINOPHEN 325 MG TABLET PO PRN (05:19)
--- NOTE | 2020-05-07 05:21 | NUR ---
GPS RN NOTES: HEADACHE AND NAUSEA PT C/O OF FEELING HEADACHE, NAUSEA AND MILD SHAKING. NO SOB. NO RESP DISTRESS. BREATHING EVEN AND UNLABORED. NO PAIN AT THIS TIME. PT STATED SHE IS COLD A REQUESTED ROOM TEMPERATURE TO BE INCREASED. PT REQUESTED MEDICATION. NOTIFIED COLLEGE SPORTS COACH MD DR HENLEY REGARDING PTS FOR ANY NEW ORDERS AND IF PT CAN TAKE TYLENOL PRN ORDERED. AGREED WITH TYLENOL FOR NOW. OFFERED TYLENOL PRN ORDERED. PT AGREED AND TOLERATED MEDICATION WELL. CONTINUE TO MONITOR.
[2020-05-07] MEDS: LEVOTHYROXINE SODIUM 125 MCG TABLET PO SCH (07:25)
[2020-05-07 08:00] VITALS: BP 156/90
[2020-05-07] MEDS: NICOTINE PATCH (14MG) 14 MG PATCH.TD24 TD SCH (08:25)
[2020-05-07] MEDS ORDERED: DULOXETINE HCL 20 MG CAPSULE.DR PO SCH (09:00)
--- NOTE | 2020-05-07 09:36 | NUR ---
GPS RN NOTE: NOTIFIED PT VS, RECONCILED GABAPENTIN FOR SEIZURE , BP MEDS, PT COMPLAINING OF NAUSEA. WAITING FOR ORDERS .
--- NOTE | 2020-05-07 11:56 | NUR ---
GPS RN NOTE: T.O. ORDER DR SMITH , GABAPENTIN 1200 MG PO HS, ZOFRAN 4 MG PO Q4 HR PRN, NORVASC 5 MG PO DAILY,ROBITUSSIN 5 ML PO Q4 HR. ORDER PLACED AND CARED OUT, WILL CONTINUE MONITORING.
[2020-05-07] MEDS ORDERED: ONDANSETRON HCL 4 MG/5 ML SOLUTION PO PRN (12:00)
[2020-05-07] MEDS: AMLODIPINE BESYLATE 5 MG TABLET PO SCH (12:11)
[2020-05-07] MEDS: GUAIFENESIN/D-METHORPHAN HB 5 ML UDC PO PRN (12:11)
[2020-05-07] MEDS: LORAZEPAM 0.5 MG TABLET PO PRN ×2 (12:11→19:58)
--- NOTE | 2020-05-07 12:11 | NUR ---
GPS RN NOTE: PATIENT COMPLAINING TO BE ANXIOUS ATIVAN 0.5 MG PO PRN GIVEN PER ORDER WILL CONTINUE MONITORING
[2020-05-07] MEDS ORDERED: ONDANSETRON 4 MG TAB.RAPDIS SL PRN ×2 (13:30)
[2020-05-07] MEDS ORDERED: ONDANSETRON 4 MG TAB.RAPDIS PO PRN (13:30)
[2020-05-07 16:00] VITALS: BP 145/91
[2020-05-07] MEDS ORDERED: hydrOXYzine PAMOATE 50 MG CAPSULE PO SCH (18:00)
--- NOTE | 2020-05-07 20:02 | NUR ---
GPS RN NOTE: ANXIETY PT WAS C/O OF FEELING ANXIOUS AND SHAKY, REQUESTED ATIVAN, ADMIN ATIVAN 0.5MG PRN @ 1957, VSS AT THIS TIME, WILL REASSESS AND CONTINUE TO MONITOR Q15MIN FOR SAFETY AND BEHAVIOR
[2020-05-07 20:28] VITALS: BP 139/101
[2020-05-07 20:58] VITALS: BP 136/94
[2020-05-07] MEDS: GABAPENTIN 400 MG CAPSULE PO SCH (21:30)
[2020-05-07] MEDS: MIRTAZAPINE 15 MG TABLET PO SCH (21:51)
[2020-05-08] MEDS: GUAIFENESIN/D-METHORPHAN HB 5 ML UDC PO PRN (00:37)
--- NOTE | 2020-05-08 00:40 | NUR ---
GPS RN NOTE: COUGH PT WOKE UP COUGHING, UNABLE TO SLEEP DUE TO THE COUGH, REQUESTED ROBITUSSIN, ADMIN ROBITUSSIN 5ML PRN @ 0047, WILL REASSESS AND CONTINUE TO MONITOR Q15MIN FOR SAFETY AND BEHAVIOR.
[2020-05-08] MEDS: LEVOTHYROXINE SODIUM 125 MCG TABLET PO SCH (06:31)
[2020-05-08 08:00] VITALS: BP 123/94
[2020-05-08] MEDS: NICOTINE PATCH (14MG) 14 MG PATCH.TD24 TD SCH (08:29)
[2020-05-08] MEDS: AMLODIPINE BESYLATE 5 MG TABLET PO SCH (08:29)
[2020-05-08 08:35] LABS: ALBUMIN 3.9 g/dL (3.4-5.0); BILIRUBIN,TOTAL 0.5 mg/dL (0.2-1.0); CALCIUM, SERUM 9.4 mg/dL (8.5-10.1); CREATININE 0.8 mg/dL (0.6-1.3); POTASSIUM 3.9 mmol/L (3.5-5.1); TOTAL PROTEIN, SERUM 8.3 g/dL (6.4-8.2)
--- NOTE | 2020-05-08 09:00 | NUR ---
RN NOTE- PT ALERT ORIENTED TO PERSON PLACE TIME AND PURPOSE. PASSIVE SI, MED COMPLIANT ENGAGES GOOD EYE CONTACT MINIMIZES PO INTAKE FAIR, ISOLATIVE
--- NOTE | 2020-05-08 10:40 | NUR ---
Substance Abuse Intervention: ROXANA conducted a substance abuse intervention with the pt due to her abusing alcohol for 30 years.
--- NOTE | 2020-05-08 12:03 | NUR ---
Initial Discharge Plan: Pt currently resides at a sober living located at [address] [place] [address]. Per pt, she would like to return to the facility once she is stable for discharge. ROXANA will work with the pt and the MD regarding appropriate discharge planning. SW will form a safe and proper discharge.
[2020-05-08 16:00] VITALS: BP 128/89
[2020-05-08 20:39] VITALS: BP 148/110
[2020-05-08] MEDS: MIRTAZAPINE 15 MG TABLET PO SCH (21:23)
[2020-05-08] MEDS: GABAPENTIN 400 MG CAPSULE PO SCH (21:23)
[2020-05-08 21:34] VITALS: BP 123/87
[2020-05-08] MEDS: LORAZEPAM 0.5 MG TABLET PO PRN (21:48)
--- NOTE | 2020-05-08 21:49 | NUR ---
GPS RN NOTE: ANXIETY PT WAS COMPLAINING OF ANXIETY, REQUESTED ATIVAN, VSS, ADMIN ATIVAN 0.5MG PRN @ 2148 WILL REASSESS AND CONTINUE TO MONITOR Q15MIN FOR SAFETY AND BEHAVIOR.
--- NOTE | 2020-05-08 21:51 | NUR ---
GPS RN NOTE NOTIFIED ADMISSIONS OFFICER DR. TRINIDAD REGARDING PTS URINE CULTURE AND URINALYSIS, DR. TRINIDAD STATED NO NEW ORDERS AT THIS TIME, WILL CONTINUE TO MONITOR Q15MIN FOR SAFETY AND BEHAVIOR AND PASS IT ON TO MORNING SHIFT.
[2020-05-09] MEDS: ACETAMINOPHEN 325 MG TABLET PO PRN (06:20)
[2020-05-09] MEDS: LEVOTHYROXINE SODIUM 125 MCG TABLET PO SCH (06:20)
--- NOTE | 2020-05-09 06:20 | NUR ---
GPS RN NOTE: PT C/O OF VENUS REQUESTED TYLENOL, ADMIN TYLENOL 650 MG PRN @ 0620, WILL REASSESS AND ENCOURAGE PT TO INCREASE FLUIDS.
[2020-05-09 08:00] VITALS: BP 156/98
[2020-05-09] MEDS: FLUVOXAMINE MALEATE 50 MG TABLET PO SCH ×3 (08:44→16:26)
[2020-05-09] MEDS: AMLODIPINE BESYLATE 5 MG TABLET PO SCH (08:44)
[2020-05-09] MEDS: NICOTINE PATCH (14MG) 14 MG PATCH.TD24 TD SCH (08:44)
--- NOTE | 2020-05-09 09:00 | NUR ---
RN NOTE-QUIET WITHDRAWN, PT ALERT ORIENTED TO PERSON PLACE TIME AND PURPOSE. PASSIVE SI, MED COMPLIANT ENGAGES GOOD EYE CONTACT MINIMIZES PO INTAKE FAIR, ISOLATIVE
--- NOTE | 2020-05-09 13:48 | NUR ---
Sober Living Contact: SW called the pts sober manager of health, Arash ([phone]), and left a voicemail stating that the SW would like to discuss the pts treatment plan.
[2020-05-09 16:00] VITALS: BP 112/81
[2020-05-09] MEDS: GUAIFENESIN/D-METHORPHAN HB 5 ML UDC PO PRN (16:31)
--- NOTE | 2020-05-09 16:32 | NUR ---
RN NOTE-PT W COUGH. ROBITUSSIN DM 30 CC GIVEN
[2020-05-09 21:09] VITALS: BP 106/68
[2020-05-09] MEDS: MIRTAZAPINE 15 MG TABLET PO SCH (21:26)
[2020-05-09] MEDS: GABAPENTIN 400 MG CAPSULE PO SCH (21:26)
[2020-05-10] MEDS: MAGNESIUM HYDROXIDE 30 ML UDC PO PRN (06:03)
--- NOTE | 2020-05-10 06:03 | NUR ---
GPS RN NOTE: CONSTIPATION PT WOKE UP C/O OF INABILITY TO HAVE A BM AND WOULD LIKE SOMETHING TO HELP, PT STATED SHE HAS NOT HAD A BM SINCE BEING ADMITTED, NO DISTENTION OR PAIN UPON ASSESSMENT OF THE ABDOMINAL AREA. ADMIN MILK OF CHRISTIANO ANDREA @ [id number].
[2020-05-10] MEDS: LEVOTHYROXINE SODIUM 125 MCG TABLET PO SCH (06:27)
[2020-05-10 08:00] VITALS: BP 133/77
[2020-05-10] MEDS: NICOTINE PATCH (14MG) 14 MG PATCH.TD24 TD SCH (08:11)
[2020-05-10] MEDS: AMLODIPINE BESYLATE 5 MG TABLET PO SCH (08:12)
[2020-05-10] MEDS: FLUVOXAMINE MALEATE 50 MG TABLET PO SCH ×3 (09:28→16:04)
--- NOTE | 2020-05-10 12:22 | NUR ---
[facility] Contact: ROXANA called the pts sober business analytics manager, Arash ([phone]), who stated that the pt can return. The address is [address] [place] [address]. She stated that the pt would have to get a ride back to the sober living so the SW stated that she will send her in a taxi.
--- NOTE | 2020-05-10 15:22 | NUR ---
RN-CO: PATIENT REQUSTED TO CHANGE HER DIET FROM CARDIAC TO REGULAR SINCE SHE SAID SHE CANNOT EAT. DR VASQUEZ MADE AWARE AND ORDER TO CHANGE DIET TO REGULAR DIET.
[2020-05-10 16:00] VITALS: BP 122/83
[2020-05-10 20:38] VITALS: BP 139/90
[2020-05-10] MEDS: GABAPENTIN 400 MG CAPSULE PO SCH (21:16)
[2020-05-11] MEDS: MAGNESIUM HYDROXIDE 30 ML UDC PO PRN (04:22)
[2020-05-11] MEDS: LEVOTHYROXINE SODIUM 125 MCG TABLET PO SCH ×2 (06:58→09:35)
[2020-05-11 09:15] VITALS: BP 140/72
[2020-05-11] MEDS: NICOTINE PATCH (14MG) 14 MG PATCH.TD24 TD SCH (09:34)
[2020-05-11 09:35] VITALS: BP 112/72
[2020-05-11] MEDS: FLUVOXAMINE MALEATE 50 MG TABLET PO SCH ×2 (09:35→13:59)
[2020-05-11] MEDS: AMLODIPINE BESYLATE 5 MG TABLET PO SCH (09:35)
--- NOTE | 2020-05-11 10:21 | NUR ---
PC Hearing: Pts [phone] hold was not upheld for danger to herself and gravely disabled.
--- NOTE | 2020-05-11 12:31 | NUR ---
Discharge Note: Pt will be discharged back to her sober living called [facility] located at [address] [place], [place]. Pt will be transported via taxi at 1pm. Upon discharge, the pt appears to be in a euthymic mood and presents with a calm affect. Pt appears to be alert and oriented x4 (time, place, self and situation). Pt appears to be ambulatory with a steady gait. Pt appears to be well groomed and appropriately dressed. Pt denies suicidal and homicidal ideation as well as auditory and visual hallucinations. Pt was given substance abuse referrals that are listed below. Pt will continue to be under the care of her psychiatrist, Dr. Bhupinder Enrique, located at [address] [place] [address]; . Pt has an appointment on 05/15/20. Pt will continue to be under the care of her conditioner tumbler operator, Dr. Bland, located at [address], [place] [address]; . The multidisciplinary exit care form was done, printed, signed, and given to the patient. Referrals: Referrals [facility] [address] [place] [address] Tel. [facility] [address] [place] Provider Mental Health Treatment Tele-dermatology HIV Services Telemedicine Services [place] [address] [place] [address] [facility] [address] [place] [address]
--- NOTE | 2020-05-11 14:59 | NUR ---
GPS/RN-DISCHARGE NOTES PATIENT WAS DISCHARGE TO SOBER LIVING FACILITY TODAY. NATHAN VASQUEZ MADE AWARE OF THE DISCHARGE WITH ORDERS.PATIENT DID NOT VERBALIZE SI/HI,DENIES VISUAL/AUDITORY HALLUCINATIONS AT THE TIME OF DISCHARGE. OFFERED FLU AND PNA VACCINE BUT PATIENT STATED" I WILL GET IT SOMEWHERE". INSTRUCTED PATIENT CALL 911 OR GO TO THE NEAREST EMERGENCY FACILITY [facility] EMERGENCY. PATIENT SIGN ALL DISCHARGE PAPERS.PATIENT LEFT THE UNIT ALERT ORIENTED X4,NO ACUTE DISTRESS NOTED,AMBULATORY STEADY GAIT. RX WAS REVIEWED WITH THE PATIENT WITH UNDERSTANDING. ALL BELONGINGS WAS GIVEN BACK TO THE PATIENT. MASK WAS GIVEN TO THE PATIENT ON DISCHARGE.PATIENT LEFT VIA TAXI.
== END 2020-05-11 15:00 | disposition home or self-care (01) | DRG 885 ==
LOC: ER 00:03 → GPS 01:39
PROVIDERS: ADMIT Psychiatry & Neurology Psychiatry; ATTEND Nurse Practitioner Acute Care
DX: F33.9 Major depressive disorder, recurrent, unspecified (principal); E03.9 Hypothyroidism, unspecified; F41.9 Anxiety disorder, unspecified; F10.10 Alcohol abuse, uncomplicated; Y90.5 Blood alcohol level of 100-119 mg/100 ml; G40.909 Epilepsy, unspecified, not intractable, without status epilepticus; Z79.899 Other long term (current) drug therapy; F15.90 Other stimulant use, unspecified, uncomplicated; F17.200 Nicotine dependence, unspecified, uncomplicated; Z98.890 Other specified postprocedural states; F29 Unspecified psychosis not due to a substance or known physiological condition; Z73.6 Limitation of activities due to disability
CPT/HCPCS: 36415; 80048-TC; 80053-TC; 80061-TC; 80076-TC; 81001; 82962-TC; 85025-TC; 87081-TC; 87086-TC; C9803; G0480; Q0162

== ENCOUNTER 2020-05-18 18:47 | Emergency (ER) | payer MEDICARE, OTHER ==
[~2020-05-18] VITALS: Ht 177.8 cm; Wt 78.9 kg
[~2020-05-18 18:47] MED LIST changes: -ARIP30TA3 PO; -DISU250T7 PO; +DULO20CA PO; +FLUV50TA10 PO; +GABA600T12 PO; -GABA800T PO; -LINA145C PO; +amlodipine PO
--- NOTE | 2020-05-18 18:56 | NUR ---
BIBRA86 FOUND OUTSIDE THE HOTEL FOR ETOH INTOXICATION, NEXT TO A VODKA BOTTLE. PT ASLEEP, AWAKEN BY PAINFUL STIMULI & WILL GO BACK TO SLEEP. SEEN & EVAL'D BY DR. MURGUIA. PLACED ON JUVENILE CORRECTIONS OFFICER, SR. VSS. RR EVEN & UNLABORED. WILL CONT TO MONITOR.
[2020-05-18 19:09] LABS: BASOPHILS # (AUTO) 0.2 /CMM (0.0-0.2); BASOPHILS % (AUTO) 1.8 % (0.0-2.0); EOSINOPHILS % (AUTO) 1.1 % (0.0-6.0); HEMATOCRIT 40 % (33-45); HEMOGLOBIN 13.4 g/dL (11.5-14.8); LYMPHOCYTES # (AUTO) 4.4 /CMM (0.8-4.8); LYMPHOCYTES % (AUTO) 46.7 % (20.0-44.0); MEAN CORPUSCULAR HGB CONC 33 g/dl (31.0-36.0); MEAN CORPUSCULAR VOLUME 87 fL (82-100); MONOCYTES # (AUTO) 0.7 /CMM (0.1-1.30); MONOCYTES % (AUTO) 7.6 % (2.0-12.0); NEUTROPHILS # (AUTO) 4.1 /CMM (1.8-8.9); NEUTROPHILS % (AUTO) 42.8 % (43.0-81.0); PLATELET COUNT (AUTO) 310 /CMM (150-450); WHITE BLOOD COUNT (AUTO) 9.5 K/uL (4.3-11.0)
[2020-05-18 19:21] LABS: CALCIUM, SERUM 8.6 mg/dL (8.5-10.1); CREATININE 0.9 mg/dL (0.6-1.3); POTASSIUM 3.7 mmol/L (3.5-5.1)
[2020-05-18 19:29] LABS: ALBUMIN 3.2 g/dL (3.4-5.0); TOTAL PROTEIN, SERUM 7.1 g/dL (6.4-8.2)
[2020-05-18 19:41] LABS: BILIRUBIN,TOTAL 0.1 mg/dL (0.2-1.0)
[2020-05-18 19:59] LABS: BILIRUBIN,URINE Negative (NEGATIVE); BLOOD, URINE Negative Ery/uL (NEGATIVE); COLOR,URINE YELLOW (YELLOW); LEUKOCYTE ESTERASE ,URINE Negative (NEGATIVE); NITRITE, URINE Negative (NEGATIVE); PROTEIN,URINE Negative (NEGATIVE); UGLUCOSE Negative (NEGATIVE); UROBILINOGEN,URINE 0.2 EU/dL (0.2)
--- NOTE | 2020-05-18 20:05 | NUR ---
KATHEID SWABBED, SENT TO LAB.
--- NOTE | 2020-05-18 21:28 | NUR ---
call from lab. Rapid covid negative.
--- NOTE | 2020-05-18 21:59 | NUR ---
Patient is resting comfortably in bed with eyes closed. Easily aroused. VSS
[2020-05-18 23:35] LABS: EOSINOPHILS % (MANUAL) 2 % (0-4); LYMPHOCYTES % (MANUAL) 47 % (16-48); METAMYELOCYTES % 1 % (0-0); MONOCYTES % (MANUAL) 3 % (0-11.0); NEUTROPHILS % (MANUAL) 44 (42-76); REACTIVE LYMPHOCYTES 3 % (0-0)
--- NOTE | 2020-05-19 05:30 | NUR ---
Patient discharged to home in stable condition. Written and verbal after care instructions given. Patient verbalizes understanding of instruction.
--- NOTE | 2020-05-19 05:30 | NUR ---
PATIENT STATES THAT SHE WILL CALL AN UBER.
--- NOTE | 2020-05-19 05:30 | NUR ---
PATIENT IS AMBULATORY WITH A STEADY GAIT.
[2020-05-19 05:41] VITALS: BP 128/74
--- NOTE | 2020-05-19 05:41 | NUR ---
PROVIDED WITH LIST OF DETOX CENTERS
== END 2020-05-19 05:41 | disposition home or self-care (01) ==
LOC: ER 18:51
DX: F10.229 Alcohol dependence with intoxication, unspecified (principal); F15.10 Other stimulant abuse, uncomplicated; Y90.8 Blood alcohol level of 240 mg/100 ml or more; I10 Essential (primary) hypertension; E03.9 Hypothyroidism, unspecified; Z79.890 Hormone replacement therapy; Z20.828 Contact with and (suspected) exposure to other viral communicable diseases
CPT/HCPCS: 36415; 80048-TC; 80076-TC; 85025-TC; C9803; G0480

== ENCOUNTER 2020-07-14 11:36 | Emergency (ER) | payer MEDICARE, OTHER ==
[~2020-07-14] VITALS: Ht 180.3 cm; Wt 81.6 kg
--- NOTE | 2020-07-14 11:36 | NUR ---
PT BIB SELF C/O SI "I WANT TO DRINK MY SELF TO " PT IS AAOX4, NOT IN RESPIRATORY DISTRESS, V/S STABLE, KEPT RESTED AND COMFORTABLE. WILL CONTINUE TO MONITOR. SITTER AT BEDSIDE.
--- NOTE | 2020-07-14 11:40 | NUR ---
SECURITY AT BEDSIDE FOR WANDING.
--- NOTE | 2020-07-14 12:00 | NUR ---
ER PHLEB AT BEDSIDE FOR BLOOD DRAW.
[2020-07-14 12:10] LABS: BASOPHILS # (AUTO) 0.1 /CMM (0.0-0.2); EOSINOPHILS % (AUTO) 0.2 % (0.0-6.0); HEMATOCRIT 40 % (33-45); HEMOGLOBIN 13.4 g/dL (11.5-14.8); LYMPHOCYTES # (AUTO) 1.9 /CMM (0.8-4.8); LYMPHOCYTES % (AUTO) 21.8 % (20.0-44.0); MEAN CORPUSCULAR HGB CONC 34 g/dl (31.0-36.0); MEAN CORPUSCULAR VOLUME 88 fL (82-100); MONOCYTES # (AUTO) 0.6 /CMM (0.1-1.30); MONOCYTES % (AUTO) 7.2 % (2.0-12.0); NEUTROPHILS # (AUTO) 5.9 /CMM (1.8-8.9); NEUTROPHILS % (AUTO) 69.8 % (43.0-81.0); PLATELET COUNT (AUTO) 247 /CMM (150-450); RED BLOOD CELL COUNT(AUTO) 4.56 MIL/uL (4.0-5.2); WHITE BLOOD COUNT (AUTO) 8.5 K/uL (4.3-11.0)
[2020-07-14 12:12] LABS: CALCIUM, SERUM 8.7 mg/dL (8.5-10.1); CARBON DIOXIDE 24 mmol/L (21-32); CHLORIDE 102 mmol/L (98-107); CREATININE 0.6 mg/dL (0.6-1.3); GLUCOSE 98 mg/dL (74-106); POTASSIUM 3.5 mmol/L (3.5-5.1); SODIUM SERUM 141 mmol/L (136-145); UREA NITROGEN, BLOOD 7 mg/dL (7-18)
[2020-07-14 12:25] LABS: ALANINE AMINOTRANSFERASE 20 U/L (12-78); ALBUMIN 3.8 g/dL (3.4-5.0); ALCOHOL, BLOOD 112 mg/dL (0-0); ALKALINE PHOSPHATASE 73 U/L (46-116); ASPARTATE AMINOTRANSFERASE 19 U/L (15-37); BILIRUBIN,DIRECT 0.1 mg/dL (0.0-0.2); BILIRUBIN,TOTAL 0.2 mg/dL (0.2-1.0)
[2020-07-14 12:26] LABS: ACETAMINOPHEN < 0 ug/ml (10-30)
[2020-07-14 12:50] LABS: BACTERIA,URINE None seen /HPF (None Seen); BILIRUBIN,URINE Negative (NEGATIVE); COLOR,URINE YELLOW (YELLOW); LEUKOCYTE ESTERASE ,URINE Negative (NEGATIVE); NITRITE, URINE Negative (NEGATIVE); PROTEIN,URINE Negative (NEGATIVE); SQUAMOUS EPITHELIAL CELL,UR Few /HPF (None Seen); UGLUCOSE Negative (NEGATIVE); UROBILINOGEN,URINE 0.2 EU/dL (0.2); WBC,URINE 0-2 /HPF (0-3)
[2020-07-14] MEDS ORDERED: LORAZEPAM 1 MG TABLET ONE (14:59)
[2020-07-14] MEDS ORDERED: LORAZEPAM 1 MG TABLET PO ONE (15:00)
--- NOTE | 2020-07-14 15:01 | NUR ---
APPEARS ANXIOUS, GETTING OUT OF BED. ERMD AWARE. MEDICATED ORDERED. SEE EMAR.
--- NOTE | 2020-07-14 17:06 | NUR ---
ACCEPTED AT [facility].
--- NOTE | 2020-07-14 17:15 | NUR ---
lab called. covid negative.
--- NOTE | 2020-07-14 17:21 | NUR ---
TRANSPORT CALLED [facility] ETA IS 60 MINS.
[2020-07-14 18:09] VITALS: BP 140/99
--- NOTE | 2020-07-14 18:28 | NUR ---
transported to [facility] in stable condition.
== END 2020-07-14 18:30 ==
LOC: ER 11:43
DX: R45.851 Suicidal ideations (principal); F32.9 Major depressive disorder, single episode, unspecified; F10.129 Alcohol abuse with intoxication, unspecified; F15.10 Other stimulant abuse, uncomplicated; Y90.5 Blood alcohol level of 100-119 mg/100 ml; Z20.822 Contact with and (suspected) exposure to COVID-19; R00.0 Tachycardia, unspecified; E03.9 Hypothyroidism, unspecified; I10 Essential (primary) hypertension; Z59.0 Homelessness; Z79.890 Hormone replacement therapy; Z79.899 Other long term (current) drug therapy; G40.909 Epilepsy, unspecified, not intractable, without status epilepticus
CPT/HCPCS: 36415; 80048-TC; 80076-TC; 81001; 85025-TC; C9803; G0480

== ENCOUNTER 2020-09-06 21:42 | Emergency (ER) | payer MEDICARE, OTHER ==
[~2020-09-06] VITALS: Ht 170.2 cm; Wt 81.6 kg
--- NOTE | 2020-09-06 22:10 | NUR ---
PT BIBRA FROM HOME C/O ETOH. PT C/O HEADACHE S/P FALL. PT PLACED ON A HARD COLLAR. PT LETHARGIC BUT RESPONSIVE TO QUESTIONS. VSS. NO ACUTE DISTRESS NOTED. WILL CONTINUE TO MONITOR PT. PT CONNECTED TO THE RELIGION DEPARTMENT CHAIR AND POX
--- NOTE | 2020-09-06 22:15 | NUR ---
BLOOD COLLECTED AND SENT TO LAB
[2020-09-06 22:23] LABS: BILIRUBIN,URINE Negative (NEGATIVE); COLOR,URINE YELLOW (YELLOW); LEUKOCYTE ESTERASE ,URINE Trace (NEGATIVE); NITRITE, URINE Negative (NEGATIVE); PROTEIN,URINE Negative (NEGATIVE); UGLUCOSE Negative (NEGATIVE); UROBILINOGEN,URINE 0.2 EU/dL (0.2)
[2020-09-06 22:26] LABS: BASOPHILS # (AUTO) 0.1 /CMM (0.0-0.2); BASOPHILS % (AUTO) 1.1 % (0.0-2.0); EOSINOPHILS % (AUTO) 1.1 % (0.0-6.0); HEMATOCRIT 39 % (33-45); HEMOGLOBIN 12.8 g/dL (11.5-14.8); LYMPHOCYTES # (AUTO) 1.8 /CMM (0.8-4.8); LYMPHOCYTES % (AUTO) 33.6 % (20.0-44.0); MEAN CORPUSCULAR HGB CONC 33 g/dl (31.0-36.0); MEAN CORPUSCULAR VOLUME 89 fL (82-100); MONOCYTES # (AUTO) 0.4 /CMM (0.1-1.30); MONOCYTES % (AUTO) 6.9 % (2.0-12.0); NEUTROPHILS # (AUTO) 3.1 /CMM (1.8-8.9); NEUTROPHILS % (AUTO) 57.3 % (43.0-81.0); PLATELET COUNT (AUTO) 203 /CMM (150-450); RED BLOOD CELL COUNT(AUTO) 4.37 MIL/uL (4.0-5.2); WHITE BLOOD COUNT (AUTO) 5.4 K/uL (4.3-11.0)
[2020-09-06 22:32] LABS: BACTERIA,URINE None seen /HPF (None Seen); MUCUS,URINE Few /LPF (None Seen); RBC,URINE 0-2 /HPF (0-2); SQUAMOUS EPITHELIAL CELL,UR Few /HPF (None Seen)
--- NOTE | 2020-09-06 22:32 | NUR ---
PT TAKEN TO RADIOLOGY FOR CT
[2020-09-06 22:35] LABS: CALCIUM, SERUM 7.8 mg/dL (8.5-10.1); CREATININE 0.7 mg/dL (0.6-1.3); POTASSIUM 3.6 mmol/L (3.5-5.1)
[2020-09-06 22:43] LABS: ALBUMIN 3.2 g/dL (3.4-5.0); BILIRUBIN,TOTAL 0.1 mg/dL (0.2-1.0); TOTAL PROTEIN, SERUM 7.1 g/dL (6.4-8.2)
--- NOTE | 2020-09-06 22:47 | NUR ---
EKG AT BEDSIDE
--- NOTE | 2020-09-06 23:15 | NUR ---
PT ROADTESTED. PT AMBULATORY W/ STEADY GAIT
--- NOTE | 2020-09-06 23:20 | NUR ---
Pt refused to sign aci.
--- NOTE | 2020-09-06 23:25 | NUR ---
Patient discharged to home in stable condition. Written and verbal after care instructions given. Patient verbalizes understanding of instruction. Pt picked up by ride. Pt ambulatory w/ steady gait. NAD noted
[2020-09-06 23:26] VITALS: BP 132/84
== END 2020-09-06 23:27 | disposition home or self-care (01) ==
LOC: ER 21:43
DX: F10.129 Alcohol abuse with intoxication, unspecified (principal); F13.10 Sedative, hypnotic or anxiolytic abuse, uncomplicated; R41.82 Altered mental status, unspecified; E03.9 Hypothyroidism, unspecified; J44.9 Chronic obstructive pulmonary disease, unspecified; I10 Essential (primary) hypertension; Y90.6 Blood alcohol level of 120-199 mg/100 ml; Z79.899 Other long term (current) drug therapy
CPT/HCPCS: 36415; 70450; 72125; 80048; 80076; 80299; 80307; 80320; 81001; 82962; 85025; 93005; 99285; L0172; G0480

== ENCOUNTER 2020-10-30 19:55 | Emergency (ER) | payer MEDICARE, OTHER ==
[~2020-10-30] VITALS: Ht 177.8 cm; Wt 65.8 kg
--- NOTE | 2020-10-30 20:15 | NUR ---
BLOOD DRAWN. PROVIDED PT WITH UA CUP.
[2020-10-30 20:19] LABS: BASOPHILS % (AUTO) 0.5 % (0.0-2.0); EOSINOPHILS % (AUTO) 1.4 % (0.0-6.0); HEMATOCRIT 34 % (33-45); HEMOGLOBIN 11.5 g/dL (11.5-14.8); LYMPHOCYTES # (AUTO) 2.6 /CMM (0.8-4.8); LYMPHOCYTES % (AUTO) 39.7 % (20.0-44.0); MEAN CORPUSCULAR HGB CONC 34 g/dl (31.0-36.0); MEAN CORPUSCULAR VOLUME 89 fL (82-100); MONOCYTES # (AUTO) 0.4 /CMM (0.1-1.30); MONOCYTES % (AUTO) 6.7 % (2.0-12.0); NEUTROPHILS # (AUTO) 3.4 /CMM (1.8-8.9); NEUTROPHILS % (AUTO) 51.7 % (43.0-81.0); PLATELET COUNT (AUTO) 288 /CMM (150-450); RED BLOOD CELL COUNT(AUTO) 3.85 MIL/uL (4.0-5.2); WHITE BLOOD COUNT (AUTO) 6.6 K/uL (4.3-11.0)
--- NOTE | 2020-10-30 20:27 | NUR ---
covid swab was sent to lab
[2020-10-30 20:47] LABS: CALCIUM, SERUM 8.7 mg/dL (8.5-10.1); CARBON DIOXIDE 28 mmol/L (21-32); CHLORIDE 103 mmol/L (98-107); CREATININE 0.8 mg/dL (0.6-1.3); GLUCOSE 92 mg/dL (74-106); POTASSIUM 3.7 mmol/L (3.5-5.1); SODIUM SERUM 139 mmol/L (136-145); UREA NITROGEN, BLOOD 9 mg/dL (7-18)
[2020-10-30 20:55] LABS: ALANINE AMINOTRANSFERASE 19 U/L (12-78); ALBUMIN 3.3 g/dL (3.4-5.0); ALCOHOL, BLOOD 181 mg/dL (0-0); ALKALINE PHOSPHATASE 86 U/L (46-116); ASPARTATE AMINOTRANSFERASE 19 U/L (15-37); BILIRUBIN,DIRECT 0.1 mg/dL (0.0-0.2); BILIRUBIN,TOTAL 0.2 mg/dL (0.2-1.0); TOTAL PROTEIN, SERUM 7.2 g/dL (6.4-8.2)
[2020-10-30 20:56] LABS: ACETAMINOPHEN < 0 ug/ml (10-30)
[2020-10-30 21:02] LABS: BILIRUBIN,URINE NEGATIVE (NEGATIVE); COLOR,URINE YELLOW (YELLOW); LEUKOCYTE ESTERASE ,URINE NEGATIVE (NEGATIVE); NITRITE, URINE NEGATIVE (NEGATIVE); PROTEIN,URINE NEGATIVE (NEGATIVE); UGLUCOSE NEGATIVE (NEGATIVE); UROBILINOGEN,URINE 0.2 EU/dL (0.2)
--- NOTE | 2020-10-30 22:18 | NUR ---
FACESHEET AND CLINICALS FA[facility]ED TO [facility].
--- NOTE | 2020-10-30 22:37 | NUR ---
PER DILLAN AT [facility] NO FEMALE BED AVAILABLE TILL MORNING. PT REUFFSED TO GO TO [facility]
[2020-10-31 00:05] VITALS: BP 131/76
--- NOTE | 2020-10-31 00:11 | NUR ---
PT ACCEPTED TO [facility] BY DR SIDDIQUI. UNIT 2. # FOR REPORT
--- NOTE | 2020-10-31 00:23 | NUR ---
[facility] CALL THE CAR CALLED FOR TRANSPORT. TRIP# [id number]
--- NOTE | 2020-10-31 00:42 | NUR ---
[facility] eta: [id number]
--- NOTE | 2020-10-31 01:44 | NUR ---
REPORT GIVEN TO GARO WEISS FOR CONTINUATION OF CARE.
--- NOTE | 2020-10-31 01:46 | NUR ---
[facility] AT BEDSIDE FOR TRANSPORT TO [facility]
--- NOTE | 2020-10-31 02:00 | NUR ---
PT WAS PICKED UP BY [facility] AND TRANSFERRED TO [facility] IN STABLE CONDITION.
== END 2020-10-31 02:07 ==
LOC: ER 20:00
DX: R45.851 Suicidal ideations (principal); F19.10 Other psychoactive substance abuse, uncomplicated; F10.10 Alcohol abuse, uncomplicated; Y90.6 Blood alcohol level of 120-199 mg/100 ml; Z20.822 Contact with and (suspected) exposure to COVID-19; E03.9 Hypothyroidism, unspecified; I10 Essential (primary) hypertension; G40.909 Epilepsy, unspecified, not intractable, without status epilepticus; Z79.890 Hormone replacement therapy; Z79.899 Other long term (current) drug therapy
CPT/HCPCS: 36415; 80048-TC; 80076-TC; 85025-TC; C9803; G0480

== ENCOUNTER 2021-03-13 10:54 | Emergency (ER) | payer MEDICARE, OTHER ==
[~2021-03-13] VITALS: Ht 177.8 cm; Wt 65.8 kg
--- NOTE | 2021-03-13 11:17 | NUR ---
called for triage not in the waiting room
--- NOTE | 2021-03-13 11:55 | NUR ---
Covid test collected and sent to Lab
[2021-03-13 12:06] LABS: BASOPHILS # (AUTO) 0.1 K/uL (0.0-0.2); BASOPHILS % (AUTO) 1.3 % (0.0-2.0); EOSINOPHILS % (AUTO) 0.8 % (0.0-6.0); HEMATOCRIT 44 % (33-45); HEMOGLOBIN 14.2 g/dL (11.5-14.8); LYMPHOCYTES # (AUTO) 1.6 K/uL (0.8-4.8); LYMPHOCYTES % (AUTO) 22.1 % (20.0-44.0); MEAN CORPUSCULAR HGB CONC 33 g/dl (31.0-36.0); MEAN CORPUSCULAR VOLUME 88 fL (82-100); MONOCYTES # (AUTO) 0.5 K/uL (0.1-1.30); MONOCYTES % (AUTO) 6.3 % (2.0-12.0); NEUTROPHILS # (AUTO) 5.1 K/uL (1.8-8.9); NEUTROPHILS % (AUTO) 69.5 % (43.0-81.0); PLATELET COUNT (AUTO) 309 K/uL (150-450); RED BLOOD CELL COUNT(AUTO) 4.97 MIL/uL (4.0-5.2); WHITE BLOOD COUNT (AUTO) 7.3 K/uL (4.3-11.0)
[2021-03-13 12:11] LABS: BILIRUBIN,URINE Negative (NEGATIVE); COLOR,URINE YELLOW (YELLOW); LEUKOCYTE ESTERASE ,URINE Small (NEGATIVE); NITRITE, URINE Positive (NEGATIVE); PH,URINE 6.5 (5.0-8.0); PROTEIN,URINE Negative (NEGATIVE); UGLUCOSE Negative (NEGATIVE); UROBILINOGEN,URINE 0.2 EU/dL (0.2)
[2021-03-13 12:12] LABS: CALCIUM, SERUM 9.2 mg/dL (8.5-10.1); CARBON DIOXIDE 28 mmol/L (21-32); CHLORIDE 100 mmol/L (98-107); CREATININE 0.9 mg/dL (0.6-1.3); GLUCOSE 89 mg/dL (74-106); SODIUM SERUM 138 mmol/L (136-145); UREA NITROGEN, BLOOD 11 mg/dL (7-18)
[2021-03-13 12:19] LABS: ACETAMINOPHEN 0 ug/ml (10-30); ALANINE AMINOTRANSFERASE 33 U/L (12-78); ALCOHOL, BLOOD < 3 mg/dL (0-0); ALKALINE PHOSPHATASE 91 U/L (46-116); ASPARTATE AMINOTRANSFERASE 31 U/L (15-37); BILIRUBIN,DIRECT 0.1 mg/dL (0.0-0.2); BILIRUBIN,TOTAL 0.4 mg/dL (0.2-1.0); TOTAL PROTEIN, SERUM 8.8 g/dL (6.4-8.2)
[2021-03-13 12:20] LABS: BACTERIA,URINE Few /HPF (None Seen); RBC,URINE 0-2 /HPF (0-2); SQUAMOUS EPITHELIAL CELL,UR Few /HPF (None Seen)
--- NOTE | 2021-03-13 17:19 | NUR ---
FAXED CLINICALS TO [facility]
--- NOTE | 2021-03-13 18:05 | NUR ---
CALLED [facility] TO FOLLOW UP ON ACCEPTANCE, THEY WILL CALL US BACK.
--- NOTE | 2021-03-13 20:52 | NUR ---
PER ART AT [facility]; PT GOT ACCEPTED AT [facility] BY DR SURESH, UNIT 2, # FOR REPORT: [phone]
--- NOTE | 2021-03-13 21:06 | NUR ---
[facility] ETA: 45-60 MIN
--- NOTE | 2021-03-13 21:50 | NUR ---
REPORT GIVEN TO MAG AT [facility]
--- NOTE | 2021-03-13 21:57 | NUR ---
[facility] AT BED SIDE TO SOLAR ENERGY INSTALLATION MANAGER THE PT.
[2021-03-13 22:18] VITALS: BP 121/70
== END 2021-03-13 21:58 ==
LOC: ER 11:00
DX: R45.851 Suicidal ideations (principal); E03.9 Hypothyroidism, unspecified; Z20.822 Contact with and (suspected) exposure to COVID-19; F10.20 Alcohol dependence, uncomplicated; Y90.0 Blood alcohol level of less than 20 mg/100 ml; Z79.890 Hormone replacement therapy; F32.A Depression, unspecified; Z86.69 Personal history of other diseases of the nervous system and sense organs
CPT/HCPCS: 36415; 80048-TC; 80076-TC; 81001; 85025-TC; 87086-TC; C9803; G0480

== ENCOUNTER 2021-04-02 22:18 | Emergency (ER) | payer MEDICARE, OTHER ==
[~2021-04-02] VITALS: Ht 180.3 cm; Wt 74.8 kg
--- NOTE | 2021-04-02 23:33 | NUR ---
PRESENTED TO THE ER FOR C/O SI, REQUESTIG MEDICAL CLEARANCE FOR PSYCH ADMISSION. PT AMBULATORY TO THE BATHROOM W. STEADY GAITS. URINE SAMPLE OBTAINED. PT WAS PLACED IN BED W/ CLOSE OBSERVATION. SI PRECAUTION IMPLEMENTED . WILL CONT TO MONITOR ,
[2021-04-02 23:45] LABS: BILIRUBIN,URINE Negative (NEGATIVE); COLOR,URINE YELLOW (YELLOW); LEUKOCYTE ESTERASE ,URINE Small (NEGATIVE); NITRITE, URINE Negative (NEGATIVE); PROTEIN,URINE Negative (NEGATIVE); UGLUCOSE Negative (NEGATIVE); UROBILINOGEN,URINE 0.2 EU/dL (0.2)
[2021-04-02 23:48] LABS: BASOPHILS # (AUTO) 0.1 K/uL (0.0-0.2); EOSINOPHILS % (AUTO) 0.3 % (0.0-6.0); HEMATOCRIT 44 % (33-45); HEMOGLOBIN 14.4 g/dL (11.5-14.8); LYMPHOCYTES # (AUTO) 2.5 K/uL (0.8-4.8); MEAN CORPUSCULAR HGB CONC 33 g/dl (31.0-36.0); MEAN CORPUSCULAR VOLUME 87 fL (82-100); MONOCYTES # (AUTO) 0.6 K/uL (0.1-1.30); MONOCYTES % (AUTO) 4.8 % (2.0-12.0); NEUTROPHILS # (AUTO) 8.3 K/uL (1.8-8.9); NEUTROPHILS % (AUTO) 71.9 % (43.0-81.0); PLATELET COUNT (AUTO) 253 K/uL (150-450); RED BLOOD CELL COUNT(AUTO) 5.07 MIL/uL (4.0-5.2); WHITE BLOOD COUNT (AUTO) 11.6 K/uL (4.3-11.0)
[2021-04-02 23:51] LABS: BACTERIA,URINE Many /HPF (None Seen); MUCUS,URINE Moderate /LPF (None Seen); SQUAMOUS EPITHELIAL CELL,UR Moderate /HPF (None Seen); WBC,URINE 51-80 /HPF (0-3)
[2021-04-02 23:56] LABS: CALCIUM, SERUM 8.6 mg/dL (8.5-10.1); CARBON DIOXIDE 26 mmol/L (21-32); CHLORIDE 103 mmol/L (98-107); CREATININE 0.8 mg/dL (0.6-1.3); GLUCOSE 99 mg/dL (74-106); POTASSIUM 3.7 mmol/L (3.5-5.1); SODIUM SERUM 142 mmol/L (136-145); UREA NITROGEN, BLOOD 16 mg/dL (7-18)
[2021-04-03 00:01] LABS: ALANINE AMINOTRANSFERASE 31 U/L (12-78); ALBUMIN 3.6 g/dL (3.4-5.0); ALCOHOL, BLOOD 73 mg/dL (0-0); ALKALINE PHOSPHATASE 92 U/L (46-116); ASPARTATE AMINOTRANSFERASE 27 U/L (15-37); BILIRUBIN,DIRECT 0.1 mg/dL (0.0-0.2); BILIRUBIN,TOTAL 0.2 mg/dL (0.2-1.0); TOTAL PROTEIN, SERUM 8.3 g/dL (6.4-8.2)
[2021-04-03 00:03] LABS: ACETAMINOPHEN < 2 ug/ml (10-30)
[2021-04-03] MEDS ORDERED: NITROFURANTOIN/NITROFURAN MONOHYDRATE 100 MG CAPSULE PO ONE (01:00)
--- NOTE | 2021-04-03 01:24 | NUR ---
FACESHEET AND CLINICALS FA[facility]ED TO [facility].
[2021-04-03] MEDS ORDERED: NITROFURANTOIN/NITROFURAN MONOHYDRATE 100 MG CAPSULE ONE (01:33)
--- NOTE | 2021-04-03 04:54 | NUR ---
ACCORDING TO ART AT [facility] INTA[facility], PT GOT ACCEPTED AT [facility] BY DR LOCKWOOD. PLEASE ARRANGE TRANSPORTATION FOR AFTER 1130 Addendum: 04/03/21 at 0457 by GRISELDA ERROR: DR DORADO
--- NOTE | 2021-04-03 05:04 | NUR ---
[facility] ETA: 1230 PM
[2021-04-03] MEDS ORDERED: NITR100C6 PO (05:09)
--- NOTE | 2021-04-03 07:01 | NUR ---
PER CHANDRIKA YOO , BED AVAILABLE NOW AND WE CAN SEND THE PT NOW. CALLED [facility] AND ARRANGED TRANSPORTATION FOR 8-8:30
--- NOTE | 2021-04-03 09:36 | NUR ---
REPORT GIVEN TO NURSE DAVID SANTO
--- NOTE | 2021-04-03 09:38 | NUR ---
REPORT GIVEN TO AMBULANCE STAFF
--- NOTE | 2021-04-03 09:49 | NUR ---
THE PATIENT IS DISCHARGE FROM ER GOING TO [facility] IN STABLE CONDITION AND VIA ARRANGED TRANSPO
[2021-04-03 09:55] VITALS: BP 130/84
== END 2021-04-03 09:55 ==
LOC: ER 22:22
DX: R45.851 Suicidal ideations (principal); N39.0 Urinary tract infection, site not specified; Z59.00 Homelessness unspecified; Z86.19 Personal history of other infectious and parasitic diseases; J44.9 Chronic obstructive pulmonary disease, unspecified; F32.A Depression, unspecified; F41.9 Anxiety disorder, unspecified; Z79.899 Other long term (current) drug therapy; I10 Essential (primary) hypertension
CPT/HCPCS: 36415; 80048-TC; 80076-TC; 81001; 85025-TC; 87086-TC; C9803; G0480

== ENCOUNTER 2021-04-20 23:27 | Emergency (ER) | payer MEDICARE, OTHER ==
[~2021-04-20] VITALS: Ht 180.3 cm; Wt 72.1 kg
[~2021-04-20 23:27] MED LIST changes: +NITR100C6 PO
[2021-04-21] MEDS ORDERED: IV NS 0.9% 1,000 ML BAG IV ONE
[2021-04-21 03:38] LABS: HEMATOCRIT 34 % (33-45); HEMOGLOBIN 11.2 g/dL (11.5-14.8); RED BLOOD CELL COUNT(AUTO) 3.82 MIL/uL (4.0-5.2); WHITE BLOOD COUNT (AUTO) 7.5 K/uL (4.3-11.0)
[2021-04-21 03:39] LABS: BASOPHILS % (AUTO) 0.4 % (0.0-2.0); EOSINOPHILS % (AUTO) 1.2 % (0.0-6.0); LYMPHOCYTES # (AUTO) 2.3 K/uL (0.8-4.8); LYMPHOCYTES % (AUTO) 30.7 % (20.0-44.0); MEAN CORPUSCULAR HGB CONC 33 g/dl (31.0-36.0); MEAN CORPUSCULAR VOLUME 90 fL (82-100); MONOCYTES # (AUTO) 0.7 K/uL (0.1-1.30); NEUTROPHILS # (AUTO) 4.4 K/uL (1.8-8.9); NEUTROPHILS % (AUTO) 58.7 % (43.0-81.0); PLATELET COUNT (AUTO) 198 K/uL (150-450)
[2021-04-21 03:59] LABS: POTASSIUM 3.7 mmol/L (3.5-5.1); SODIUM SERUM 139 mmol/L (136-145)
[2021-04-21 04:00] LABS: CALCIUM, SERUM 8.9 mg/dL (8.5-10.1); CARBON DIOXIDE 27 mmol/L (21-32); CHLORIDE 104 mmol/L (98-107); CREATININE 0.7 mg/dL (0.6-1.3); GLUCOSE 122 mg/dL (74-106); UREA NITROGEN, BLOOD 12 mg/dL (7-18)
--- NOTE | 2021-04-21 05:12 | NUR ---
FACESHEET AND CLINICALS FA[facility]ED TO [facility].
--- NOTE | 2021-04-21 08:34 | NUR ---
ACCEPTED BACK TO [facility]. GOING TO UNIT 1. 106.B. REPORT GIVEN TO GEORGE WEISS. WILL CALL FOR TRANSPORT.
--- NOTE | 2021-04-21 08:42 | NUR ---
CALLED [facility] FOR TRANSPORT TO [facility] ETA 60 MINUTES.
[2021-04-21 10:04] VITALS: BP 121/78
--- NOTE | 2021-04-21 10:08 | NUR ---
IV removed. Catheter intact and site benign. Pressure and 4x4 applied to site. No bleeding noted.Patient discharged to home in stable condition. Written and verbal after care instructions given. Patient verbalizes understanding of instruction.
== END 2021-04-21 10:09 | disposition short-term general hospital (02) ==
LOC: ER 23:30
DX: R55 Syncope and collapse (principal); I10 Essential (primary) hypertension; J44.9 Chronic obstructive pulmonary disease, unspecified; F32.9 Major depressive disorder, single episode, unspecified; F41.9 Anxiety disorder, unspecified; F17.200 Nicotine dependence, unspecified, uncomplicated; Z59.00 Homelessness unspecified; Z79.899 Other long term (current) drug therapy
CPT/HCPCS: 36415; 71045; 80048; 82962; 84484; 85025; 93005; 96360; 99285; J7030

== ENCOUNTER 2021-07-30 17:48 | Emergency (ER) | payer MEDICARE, OTHER ==
[~2021-07-30] VITALS: Ht 180.3 cm; Wt 74.8 kg
--- NOTE | 2021-07-30 17:48 | NUR ---
PT BIB BLS TRANSPORT FROM [facility] FOR RIGHT SIDED CHEST PAIN AGGRAVATED. PT IS AAOX4, NOT IN RESPIRATORY DISTRESS, HOOKED TO NURSE CLINICAL, KEPT RESTED AND COMFORTABLE. WILL CONTINUE TO MONITOR.
--- NOTE | 2021-07-30 18:01 | NUR ---
PT SEEN AND EXAMINED BY .
--- NOTE | 2021-07-30 18:10 | NUR ---
IV LINE ESTABLISHED G20 R HAND.
--- NOTE | 2021-07-30 18:30 | NUR ---
URINE SPECIMEN COLLECTED AND SENT TO LAB.
--- NOTE | 2021-07-30 18:34 | NUR ---
COVID SPECIMEN OBTAINED AND SENT TO LAB.
[2021-07-30 18:58] LABS: CALCIUM, SERUM 8.6 mg/dL (8.5-10.1); CARBON DIOXIDE 28 mmol/L (21-32); CHLORIDE 102 mmol/L (98-107); CREATININE 0.7 mg/dL (0.6-1.3); GLUCOSE 84 mg/dL (74-106); POTASSIUM 3.9 mmol/L (3.5-5.1); SODIUM SERUM 140 mmol/L (136-145); UREA NITROGEN, BLOOD 13 mg/dL (7-18)
[2021-07-30 19:05] VITALS: BP 139/99
--- NOTE | 2021-07-30 19:05 | NUR ---
RECIEVED REPORT FROM MADDI WEISS FOR [facility].
[2021-07-30 19:28] LABS: BILIRUBIN,URINE NEGATIVE (NEGATIVE); COLOR,URINE YELLOW (YELLOW); LEUKOCYTE ESTERASE ,URINE SMALL (NEGATIVE); NITRITE, URINE NEGATIVE (NEGATIVE); PROTEIN,URINE NEGATIVE (NEGATIVE); UGLUCOSE NEGATIVE (NEGATIVE); UROBILINOGEN,URINE 0.2 EU/dL (0.2)
[2021-07-30 19:52] LABS: BACTERIA,URINE Rare /HPF (None Seen); RBC,URINE 0-2 /HPF (0-2); SQUAMOUS EPITHELIAL CELL,UR Moderate /HPF (None Seen)
[2021-07-30 19:52] LABS: BASOPHILS % (AUTO) 0.6 % (0.0-2.0); EOSINOPHILS % (AUTO) 0.4 % (0.0-6.0); HEMATOCRIT 41 % (33-45); HEMOGLOBIN 13.7 g/dL (11.5-14.8); LYMPHOCYTES % (AUTO) 28.7 % (20.0-44.0); MEAN CORPUSCULAR HGB CONC 33 g/dl (31.0-36.0); MEAN CORPUSCULAR VOLUME 86 fL (82-100); MONOCYTES # (AUTO) 0.5 K/uL (0.1-1.30); MONOCYTES % (AUTO) 7.5 % (2.0-12.0); NEUTROPHILS # (AUTO) 4.3 K/uL (1.8-8.9); NEUTROPHILS % (AUTO) 62.8 % (43.0-81.0); PLATELET COUNT (AUTO) 303 K/uL (150-450); RED BLOOD CELL COUNT(AUTO) 4.77 MIL/uL (4.0-5.2); WHITE BLOOD COUNT (AUTO) 6.9 K/uL (4.3-11.0)
--- NOTE | 2021-07-30 21:16 | NUR ---
CALLED LAB TO F/U ON RESULTS. PER LAB, MACHINE BROKEN, NO ETA
[2021-07-30 21:33] LABS: ALANINE AMINOTRANSFERASE 22 U/L (12-78); ALBUMIN 3.7 g/dL (3.4-5.0); ALKALINE PHOSPHATASE 66 U/L (46-116); ASPARTATE AMINOTRANSFERASE 13 U/L (15-37); BILIRUBIN,DIRECT 0.1 mg/dL (0.0-0.2); BILIRUBIN,TOTAL 0.3 mg/dL (0.2-1.0); TOTAL PROTEIN, SERUM 8.1 g/dL (6.4-8.2)
--- NOTE | 2021-07-30 21:37 | NUR ---
FAXED FACE SHEET AND CLINICALS TO [facility]
[2021-07-30 21:47] LABS: ALCOHOL, BLOOD 17 mg/dL (0-0)
[2021-07-30 21:49] LABS: ACETAMINOPHEN < 0 ug/ml (10-30)
--- NOTE | 2021-07-30 23:53 | NUR ---
S/W KALEIGH FROM [facility] TEL [phone], PT IS ACCEPTED AND REPORT SHOULD BE GIVEN [place] [phone]
--- NOTE | 2021-07-31 00:03 | NUR ---
REPORT GIVEN TO GEORGE AT [facility]. CALLED AND LEFT A MESSAGE TO [facility] FOR TRANSPORTATION. AWAITING FOR HIS CALL BACK
--- NOTE | 2021-07-31 00:25 | NUR ---
[facility] ETA: 5 MIN
--- NOTE | 2021-07-31 00:38 | NUR ---
[facility] AT BED SIDE TO RAILROAD ENGINEER THE PT
--- NOTE | 2021-07-31 00:55 | NUR ---
[facility]
== END 2021-07-31 01:02 ==
LOC: ER 17:52
DX: R07.9 Chest pain, unspecified (principal); I10 Essential (primary) hypertension; Z20.822 Contact with and (suspected) exposure to COVID-19; F17.200 Nicotine dependence, unspecified, uncomplicated; J44.9 Chronic obstructive pulmonary disease, unspecified; F32.A Depression, unspecified; Z86.19 Personal history of other infectious and parasitic diseases; F10.10 Alcohol abuse, uncomplicated
CPT/HCPCS: 36415; 71045-TC; 80048-TC; 80076-TC; 81001; 84484-TC; 85025-TC; 87086-TC; C9803; G0480

== ENCOUNTER 2021-12-01 10:38 | Emergency (ER) | payer MEDICARE, OTHER ==
[~2021-12-01] VITALS: Ht 180.3 cm; Wt 75.7 kg
--- NOTE | 2021-12-01 11:06 | NUR ---
FEELING DEPRESSED X 2 WEEKS,REQUESTING VOLUNTARY ADMISSION TO [facility]. PT AAOX4, VSS, RR EVEN & UNLABORED. DENIES SI/HI OR ANY OTHER DISCOMFORT. PT SEEN & EVAL'D BY DR. FABIAN. PT CALM & COOPERATIVE, WILL CONT TO MONITOR.
[2021-12-01 11:31] LABS: BASOPHILS % (AUTO) 0.4 % (0.0-2.0); EOSINOPHILS % (AUTO) 1.5 % (0.0-6.0); HEMATOCRIT 41 % (33-45); HEMOGLOBIN 13.6 g/dL (11.5-14.8); LYMPHOCYTES % (AUTO) 41.9 % (20.0-44.0); MEAN CORPUSCULAR HGB CONC 33 g/dl (31.0-36.0); MEAN CORPUSCULAR VOLUME 87 fL (82-100); MONOCYTES # (AUTO) 0.7 K/uL (0.1-1.30); MONOCYTES % (AUTO) 9.1 % (2.0-12.0); NEUTROPHILS # (AUTO) 3.4 K/uL (1.8-8.9); NEUTROPHILS % (AUTO) 47.1 % (43.0-81.0); PLATELET COUNT (AUTO) 190 K/uL (150-450); RED BLOOD CELL COUNT(AUTO) 4.71 MIL/uL (4.0-5.2); WHITE BLOOD COUNT (AUTO) 7.2 K/uL (4.3-11.0)
[2021-12-01 11:43] LABS: CALCIUM, SERUM 8.8 mg/dL (8.5-10.1); CARBON DIOXIDE 25 mmol/L (21-32); CHLORIDE 101 mmol/L (98-107); CREATININE 0.9 mg/dL (0.6-1.3); GLUCOSE 116 mg/dL (74-106); POTASSIUM 3.8 mmol/L (3.5-5.1); SODIUM SERUM 134 mmol/L (136-145); UREA NITROGEN, BLOOD 13 mg/dL (7-18)
[2021-12-01 11:49] LABS: ALANINE AMINOTRANSFERASE 28 U/L (12-78); ALBUMIN 3.5 g/dL (3.4-5.0); ALKALINE PHOSPHATASE 63 U/L (46-116); ASPARTATE AMINOTRANSFERASE 22 U/L (15-37); BILIRUBIN,DIRECT 0.1 mg/dL (0.0-0.2); BILIRUBIN,TOTAL 0.3 mg/dL (0.2-1.0); TOTAL PROTEIN, SERUM 7.5 g/dL (6.4-8.2)
[2021-12-01 11:50] LABS: ACETAMINOPHEN 0 ug/ml (10-30)
[2021-12-01 11:51] LABS: ALCOHOL, BLOOD < 3 mg/dL (0-0)
--- NOTE | 2021-12-01 13:30 | NUR ---
PT SITTING UP, CALM & COOPERATIVE, NAD NOTED AT THIS TIME. WILL CONT TO MONITOR.
[2021-12-01 13:45] LABS: BILIRUBIN,URINE NEGATIVE (NEGATIVE); COLOR,URINE YELLOW (YELLOW); LEUKOCYTE ESTERASE ,URINE SMALL (NEGATIVE); NITRITE, URINE POSITIVE (NEGATIVE); PROTEIN,URINE NEGATIVE (NEGATIVE); UGLUCOSE NEGATIVE (NEGATIVE); UROBILINOGEN,URINE 0.2 EU/dL (0.2)
[2021-12-01 14:32] LABS: RBC,URINE NONE SEEN /HPF (0-2); WBC,URINE 21-50 /HPF (0-3)
[2021-12-01 14:33] LABS: BACTERIA,URINE Many /HPF (None Seen)
[2021-12-01] MEDS ORDERED: CEPH500C2 PO (14:59)
[2021-12-01] MEDS ORDERED: CEPHALEXIN MONOHYDRATE 500 MG CAPSULE PO ONE ×2 (15:00→15:02)
[2021-12-01 15:43] VITALS: BP 118/85
--- NOTE | 2021-12-01 15:43 | NUR ---
PT STABLE, NAD NOTED AT THIS TIME. WILL CONT TO MONITOR.
--- NOTE | 2021-12-01 16:00 | NUR ---
FAXED CLINACALS TO [facility].
--- NOTE | 2021-12-01 18:21 | NUR ---
TEMO CALLED [facility] INTAKE: PT ACCEPTED TO [facility] UNDER DR. DORADO PLEASE CALL [phone] FOR REPORT.
--- NOTE | 2021-12-01 18:27 | NUR ---
[facility] CALLED FOR TRANSFER ETA 2000
--- NOTE | 2021-12-01 19:42 | NUR ---
REPORT GIVEN TO TORY FOR CONTINUATION OF CARE.
--- NOTE | 2021-12-01 20:43 | NUR ---
[facility] AT BEDSIDE FOR TRANSPORT TO [facility].
== END 2021-12-01 20:52 ==
LOC: ER 10:48
DX: R45.851 Suicidal ideations (principal); N39.0 Urinary tract infection, site not specified; F32.A Depression, unspecified; F17.200 Nicotine dependence, unspecified, uncomplicated; Z86.19 Personal history of other infectious and parasitic diseases; Z79.899 Other long term (current) drug therapy; J44.9 Chronic obstructive pulmonary disease, unspecified; I10 Essential (primary) hypertension; F10.21 Alcohol dependence, in remission
CPT/HCPCS: 36415; 80048-TC; 80076-TC; 81001; 85025-TC; 87086-TC; 87186-TC; C9803; G0480

== ENCOUNTER 2022-02-27 16:16 | Emergency (ER) | payer MEDICARE, OTHER ==
[~2022-02-27] VITALS: Ht 170.2 cm; Wt 72.6 kg
[~2022-02-27 16:16] MED LIST changes: +CEPH500C2 PO
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
--- NOTE | 2022-02-27 18:10 | NUR ---
MEAL TRAY PROVIDED
--- NOTE | 2022-02-27 21:16 | NUR ---
Patient discharged to home in stable condition. Written and verbal after care instructions given. Patient verbalizes understanding of instruction.
[2022-02-27 22:53] VITALS: BP 158/100
== END 2022-02-27 21:20 | disposition home or self-care (01) ==
LOC: ER 16:21
DX: F10.129 Alcohol abuse with intoxication, unspecified (principal); I10 Essential (primary) hypertension; J44.9 Chronic obstructive pulmonary disease, unspecified; F32.A Depression, unspecified; F41.9 Anxiety disorder, unspecified; F17.200 Nicotine dependence, unspecified, uncomplicated; Z79.899 Other long term (current) drug therapy; Y90.9 Presence of alcohol in blood, level not specified
CPT/HCPCS: 82962-TC

== ENCOUNTER 2022-05-02 13:23 | Emergency (ER) | payer MEDICARE, OTHER ==
[~2022-05-02] VITALS: Ht 180.3 cm; Wt 68.0 kg
--- NOTE | 2022-05-02 13:45 | NUR ---
BIBRA 878 ETOH PT STATES "DRINKING SINCE THIS AM". PLACED ON BED, AAOX4 ABLE TO AMBULATE, BREATHING EVEN AND UNLABORED.
--- NOTE | 2022-05-02 16:18 | NUR ---
PATIENT ROSA MARIA MENG MADE AWARE
[2022-05-02 16:21] VITALS: BP 100/69
== END 2022-05-02 16:18 | disposition left against medical advice (07) ==
LOC: ER 13:30
DX: F10.129 Alcohol abuse with intoxication, unspecified (principal); I10 Essential (primary) hypertension; F17.200 Nicotine dependence, unspecified, uncomplicated; Z79.899 Other long term (current) drug therapy; Y90.9 Presence of alcohol in blood, level not specified

== ENCOUNTER 2023-07-28 14:35 | Emergency (ER) | payer MEDICARE, OTHER ==
[~2023-07-28] VITALS: Ht 180.3 cm; Wt 69.9 kg
[2023-07-28 15:00] VITALS: BP 137/87; TEMP 98.1; O2SAT 100
[2023-07-28 15:09] LABS: BASOPHILS # (AUTO) 0.1 K/uL (0.0-0.2); EOSINOPHILS # (AUTO) 0.3 K/uL (0.0-0.7); HEMATOCRIT 41 % (33-45); HEMOGLOBIN 13.3 g/dL (11.5-14.8); LYMPHOCYTES # (AUTO) 1.5 K/uL (0.8-4.8); LYMPHOCYTES % (AUTO) 23.3 % (20.0-44.0); MEAN CORPUSCULAR HEMOGLOBIN 27 PG (26.0-33.0); MEAN CORPUSCULAR HGB CONC 32 g/dl (31.0-36.0); MEAN CORPUSCULAR VOLUME 83 fL (82-100); MONOCYTES # (AUTO) 0.5 K/uL (0.1-1.30); MONOCYTES % (AUTO) 7.3 % (2.0-12.0); NEUTROPHILS # (AUTO) 4.1 K/uL (1.8-8.9); NEUTROPHILS % (AUTO) 63.4 % (43.0-81.0); PLATELET COUNT (AUTO) 173 K/uL (150-450); RED BLOOD CELL COUNT(AUTO) 4.93 MIL/uL (4.0-5.2); RED CELL DISTRIBUTION WIDTH 17.6 % (11.5-15.0); WHITE BLOOD COUNT (AUTO) 6.5 K/uL (4.3-11.0)
[2023-07-28 15:18] LABS: CALCIUM, SERUM 9.1 mg/dL (8.5-10.1); CARBON DIOXIDE 26 mmol/L (21-32); CHLORIDE 105 mmol/L (98-107); CREATININE 0.7 mg/dL (0.6-1.3); GLUCOSE 89 mg/dL (74-106); POTASSIUM 3.8 mmol/L (3.5-5.1); SODIUM SERUM 139 mmol/L (136-145); UREA NITROGEN, BLOOD 9 mg/dL (7-18)
[2023-07-28 15:24] LABS: ALANINE AMINOTRANSFERASE 17 U/L (12-78); ALBUMIN 3.3 g/dL (3.4-5.0); ALCOHOL, BLOOD < 3 mg/dL (0-10); ALKALINE PHOSPHATASE 98 U/L (46-116); ASPARTATE AMINOTRANSFERASE 16 U/L (15-37); BILIRUBIN,DIRECT 0.1 mg/dL (0.0-0.2); BILIRUBIN,TOTAL 0.2 mg/dL (0.2-1.0); SALICYLATE 3.9 mg/dL (2.8-20.0); TOTAL PROTEIN, SERUM 7.5 g/dL (6.4-8.2)
[2023-07-28 15:27] LABS: ACETAMINOPHEN <10 ug/ml (10-30)
[2023-07-28 17:01] LABS: APPEARANCE,URINE CLEAR (CLEAR); BILIRUBIN,URINE NEGATIVE (NEGATIVE); BLOOD, URINE NEGATIVE Ery/uL (NEGATIVE); COLOR,URINE YELLOW (YELLOW); KETONES,URINE NEGATIVE (NEGATIVE); LEUKOCYTE ESTERASE ,URINE 1+ (NEGATIVE); NITRITE, URINE NEGATIVE (NEGATIVE); PROTEIN,URINE NEGATIVE (NEGATIVE); UGLUCOSE NEGATIVE (NEGATIVE); UROBILINOGEN,URINE 0.2 EU/dL (0.2)
[2023-07-28 17:12] LABS: AMPHETAMINE, URINE NEGATIVE (NEGATIVE); BARBITURATE, URINE NEGATIVE (NEGATIVE); BENZODIAZEPINE, URINE NEGATIVE (NEGATIVE); CANNABINOID, URINE NEGATIVE (NEGATIVE); COCCAINE, URINE NEGATIVE (NEGATIVE); OPIATE, URINE NEGATIVE (NEGATIVE); PHENCYCLIDINE SCREEN,URINE NEGATIVE (NEGATIVE)
[2023-07-28 17:38] LABS: ADD URINE CULTURE YES; BACTERIA,URINE Few /HPF (None Seen); RBC,URINE 0-2 /HPF (0-2); SQUAMOUS EPITHELIAL CELL,UR Few /HPF (None Seen); WBC,URINE NONE SEEN /HPF (0-3)
== END 2023-07-29 00:48 ==
LOC: ER 14:46
DX: F32.A Depression, unspecified (principal); I10 Essential (primary) hypertension; Z20.822 Contact with and (suspected) exposure to COVID-19
CPT/HCPCS: 99285; 85025; 80048; 87086; 80076; 81001; 36415; 87426; 80143; 80320; 80307; A6403; G0480